=== PATIENT | male | born 1975 | race Caucasian/White ===

== ENCOUNTER 2024-05-22 13:11 | Inpatient (IN) | payer MEDICAID, OTHER ==
[~2024-05-22] VITALS: Ht 177.8 cm; Wt 81.6 kg
[~2024-05-22 13:11] MED LIST: BACL5TAB PO; MIDO10TA3 MT; PREG50CA PO
[2024-05-22] MEDS: SODIUM CHLORIDE 0.9% (SEPSIS BOLUS) IV ONE (13:46)
[2024-05-22 13:59] LABS: BASOPHILS % 0.2 % (0.0-2.0); DIFFERENTIAL COMMENT 0; EOSINOPHILS % 0.2 % (0.0-5.0); HEMATOCRIT. 30.8 % (42.0-52.0); HEMOGLOBIN. 9.6 g/dL (14.0-18.0); LYMPHOCYTES % 16.1 % (20.0-50.0); MEAN CORPUSCULAR HEMOGLOBIN 31.5 pg (28.0-32.0); MEAN CORPUSCULAR VOLUME 101.6 fL (80.0-94.0); MEAN PLATELET VOLUME 8.3 fl (7.4-10.4); MONOCYTES % 7.8 % (2.0-8.0); NEUTROPHILS % 75.7 % (40.0-76.0); PLATELET 272 x1000/uL (130-400); RED BLOOD CELL COUNT 3.03 mill/uL (4.7-6.1)
[2024-05-22 14:00] LABS: CARBON DIOXIDE 13 mEq/L (21-32); CHLORIDE 98 mEq/L (98-107); POTASSIUM 5.5 mEq/L (3.5-5.1); SODIUM 128 mEq/L (136-145)
[2024-05-22 14:06] LABS: GLUCOSE 127 mg/dL (70-105); UREA NITROGEN BLOOD 56 mg/dL (9-23)
[2024-05-22 14:07] LABS: ALANINE AMINOTRANSFERASE 53 IU/L (10-49); ALBUMIN 3.2 g/dL (3.2-4.8); ASPARTATE AMINOTRANSFERASE 53 IU/L (<34)
[2024-05-22 14:08] LABS: BILIRUBIN DIRECT 0.3 mg/dL (<=3.0); BILIRUBIN TOTAL 0.8 mg/dL (0.1-1.0); PROTEIN TOTAL 7.4 g/dL (6.0-8.3)
[2024-05-22] MEDS: SODIUM CHLORIDE 0.9% 500 ML IV ONE (14:23)
[2024-05-22] MEDS: PIPERACILLIN/TAZO 3.375G/50ML 50 ML IV ONE (14:23)
[2024-05-22 14:24] LABS: CREATININE 2.8 mg/dL (0.6-1.3); TROPONIN I HIGH SENSITIVITY < 4 ng/L (3.0-53)
[2024-05-22 14:26] LABS: LACTIC ACID 6.2 mmol/L (0.4-2.0)
[2024-05-22] MEDS: VANCOMYCIN 1G PREMIX 200 ML IV ONE (14:28)
[2024-05-22 14:29] LABS: INR 1.2; PROTHROMBIN TIME 13.5 sec (9.6-11.0)
[2024-05-22] MEDS: MIDODRINE HCL 5MG TABLET PO SCH (14:45)
[2024-05-22] MEDS: PHENYLEPHRINE 50MG/250ML PMX 250 ML IV STA ×2 (14:52→20:01)
[2024-05-22] MEDS: NOREPINEPHRINE 8MG/250ML PMX 250 ML IV ONE ×2 (15:45→22:12)
[2024-05-22 15:52] LABS: CLARITY URINE TURBID (CLEAR); COLOR URINE YELLOW (YELLOW); GLUCOSE URINE NEGATIVE (NEGATIVE); KETONES URINE NEGATIVE (NEGATIVE); LEUKOCYTE ESTERASE URINE 3+ (NEGATIVE); NITRITE URINE NEGATIVE (NEGATIVE); OCCULT BLOOD URINE 1+ (NEGATIVE); PH URINE >=9.0 (4.5-8.0); PROTEIN URINE 3+ (NEGATIVE); SPECIFIC GRAVITY URINE 1.013 (1.005-1.030); UROBILINOGEN URINE 0.2 E.U./dL (0.2-1.0)
[2024-05-22 16:18] LABS: BACTERIA URINE 4+; RBC URINE 0-2 /hpf (0-2); SQUAMOUS EPITHELIAL CELL URINE FEW /lpf (RARE/1+)
[2024-05-22 16:21] LABS: TRIPLE PHOSPHATE CRYSTAL URINE 1+ /lpf; WBC URINE 25-50 /hpf (0-2)
[2024-05-22] MEDS: DIATR MEGLU/DIATRIZOATE SOLN 120ML ONE (17:10)
[2024-05-22] MEDS: MORPHINE SULFATE 2 MG/ML INJ (NOT FOR IM USE) IV ONE (17:45)
[2024-05-22] MEDS: DEXT 5%/0.9% NACL 1,000 ML IV SCH (19:30)
[2024-05-22] MEDS ORDERED: NOREPINEPHRINE 8MG/250ML PMX 250 ML IV ONE (19:30)
[2024-05-22] MEDS ORDERED: PHENYLEPHRINE 100 MG in DEXT 5% WATER 240 ML IV PRN (19:30)
[2024-05-22 19:31] LABS: TROPONIN I HIGH SENSITIVITY 4 ng/L (3.0-53)
[2024-05-22] MEDS ORDERED: DEXTROSE 50% WATER 50ML SYRINGE IV PRN (19:45)
[2024-05-22] MEDS ORDERED: PHENYLEPHRINE 50MG/250ML PMX 250 ML IV SCH (20:00)
[2024-05-22 20:45] LABS: BG BASE EXCESS -14.3 mmol/L (-2.0-3.0); BG CARBOXYHEMOGLOBIN 0.2 % (0.5-1.5); BG DEOXYHEMOGLOBIN 5.7 % (0.0-5.0); BG FRACTION INSPIRED OXYGEN 100; BG HCO3 ACT 13.2 mmol/L (21.0-28.0); BG METHEMOGLOBIN 0.3 % (0.5-1.5); BG OXYGEN SATURATION 94.3 % (94.0-98.0); BG OXYHEMOGLOBIN 93.8 % (94.0-98.0); BG PCO2 36.7 mmHg (35.0-48.0); BG PH 7.173 (7.350-7.450); BG PO2 84.7 mmHg (83.0-108.0); BG SAMPLE SITE RIGHT BRACHIAL; BG TOTAL HEMOGLOBIN 10.5 g/dL (13.5-17.5); BG VENT MODE MASK - NRB
[2024-05-22] MEDS: INSULIN LISPRO 100 UNITS/ML SUBCUT SCH (21:00)
[2024-05-22] MEDS: BLOOD SUGAR DIAGNOSTIC STRIP TEST SCH (21:00)
[2024-05-22] MEDS: MEROPENEM 1G/100ML 100 ML IV SCH (22:00)
[2024-05-22] MEDS: PANTOPRAZOLE SODIUM 40 MG/VIAL IV SCH (22:17)
[2024-05-22] MEDS: SODIUM BICARBONATE 8.4% 50MEQ/50ML SYR IV NR (22:18)
[2024-05-23] VITALS (52 sets, daily range): BP systolic 65–138; BP diastolic 46–93; PULSE 116–152; RESP 10–28; TEMP 36.50292; O2SAT 96–100
[2024-05-23 00:01] LABS: CHLORIDE 99 mEq/L (98-107); POTASSIUM 4.9 mEq/L (3.5-5.1); SODIUM 131 mEq/L (136-145)
[2024-05-23 00:02] LABS: CARBON DIOXIDE 15 mEq/L (21-32)
[2024-05-23 00:03] LABS: CALCIUM 8.6 mg/dL (8.7-10.4)
[2024-05-23 00:07] LABS: CREATININE 2.7 mg/dL (0.6-1.3); GLUCOSE 119 mg/dL (70-105); UREA NITROGEN BLOOD 60 mg/dL (9-23)
[2024-05-23 00:09] LABS: ALANINE AMINOTRANSFERASE 53 IU/L (10-49); ALBUMIN 3.1 g/dL (3.2-4.8); ASPARTATE AMINOTRANSFERASE 59 IU/L (<34); BILIRUBIN TOTAL 0.4 mg/dL (0.1-1.0); PROTEIN TOTAL 7.1 g/dL (6.0-8.3)
[2024-05-23] MEDS ORDERED: NOREPINEPHRINE 8MG/250ML PMX 250 ML IV SCH (01:00)
[2024-05-23] MEDS ORDERED: VASOPRESSIN 20 UNIT in SODIUM CHLORIDE 0.9% 99 ML IV PRN (01:00)
[2024-05-23] MEDS: MEROPENEM 1GM/50ML DUPLEX 50 ML IV NR (01:09)
[2024-05-23 01:23] LABS: BG BASE EXCESS -10.2 mmol/L (-2.0-3.0); BG CARBOXYHEMOGLOBIN 0.3 % (0.5-1.5); BG DEOXYHEMOGLOBIN 1.1 % (0.0-5.0); BG FRACTION INSPIRED OXYGEN 100; BG HCO3 ACT 16.8 mmol/L (21.0-28.0); BG METHEMOGLOBIN 0.3 % (0.5-1.5); BG OXYGEN SATURATION 98.9 % (94.0-98.0); BG OXYHEMOGLOBIN 98.3 % (94.0-98.0); BG PCO2 41.4 mmHg (35.0-48.0); BG PH 7.225 (7.350-7.450); BG PO2 154.4 mmHg (83.0-108.0); BG SAMPLE SITE LEFT RADIAL; BG TOTAL HEMOGLOBIN 9.9 g/dL (13.5-17.5); BG VENT MODE MASK - NRB
[2024-05-23] MEDS: PHENYLEPHRINE 100 MG in DEXT 5% WATER 240 ML IV PRN (02:02)
[2024-05-23] MEDS: SODIUM BICARBONATE 8.4% 50MEQ/50ML SYR IV NR (02:30)
[2024-05-23] MEDS ORDERED: LACTATED RINGERS 1,000 ML IV NR (02:30)
[2024-05-23] MEDS ORDERED: FENTANYL 2500MCG/250ML PMX 250 ML IV SCH (02:45)
[2024-05-23] MEDS: VASOPRESSIN 20 UNIT in SODIUM CHLORIDE 0.9% 99 ML IV PRN (03:10)
[2024-05-23] MEDS: NOREPINEPHRINE 8MG/250ML PMX 250 ML IV PRN ×2 (03:10→22:00)
[2024-05-23 03:24] LABS: POTASSIUM 4.1 mEq/L (3.5-5.1)
[2024-05-23 03:25] LABS: CALCIUM 8.2 mg/dL (8.7-10.4)
[2024-05-23 03:27] LABS: BG BASE EXCESS -12.4 mmol/L (-2.0-3.0); BG DEOXYHEMOGLOBIN 9.3 % (0.0-5.0); BG FRACTION INSPIRED OXYGEN 100; BG HCO3 ACT 16.4 mmol/L (21.0-28.0); BG METHEMOGLOBIN 0.3 % (0.5-1.5); BG OXYGEN SATURATION 90.7 % (94.0-98.0); BG OXYHEMOGLOBIN 90.4 % (94.0-98.0); BG PCO2 51.5 mmHg (35.0-48.0); BG PH 7.122 (7.350-7.450); BG PO2 73.5 mmHg (83.0-108.0); BG SAMPLE SITE LEFT RADIAL; BG TOTAL HEMOGLOBIN 9.8 g/dL (13.5-17.5); BG VENT MODE VENT - AC
[2024-05-23 03:30] LABS: CREATININE 2.5 mg/dL (0.6-1.3)
[2024-05-23 03:48] LABS: BASOPHILS % 0.3 % (0.0-2.0); DIFFERENTIAL COMMENT 0; EOSINOPHILS % 0.1 % (0.0-5.0); HEMATOCRIT. 25.6 % (42.0-52.0); HEMOGLOBIN. 8.2 g/dL (14.0-18.0); LYMPHOCYTES % 20.8 % (20.0-50.0); MEAN CORPUSCULAR HEMOGLOBIN 31.5 pg (28.0-32.0); MEAN CORPUSCULAR HGB CONC 31.9 g/dL (31.0-37.0); MEAN CORPUSCULAR VOLUME 98.8 fL (80.0-94.0); MEAN PLATELET VOLUME 8.7 fl (7.4-10.4); MONOCYTES % 2.6 % (2.0-8.0); NEUTROPHILS % 76.2 % (40.0-76.0); PLATELET 253 x1000/uL (130-400); RED BLOOD CELL COUNT 2.59 mill/uL (4.7-6.1); RED CELL DISTRIBUTION WIDTH 17.1 % (11.6-14.6); WHITE BLOOD COUNT 9.8 x1000/uL (4.5-11.0)
[2024-05-23 04:03] LABS: LACTIC ACID 9.3 mmol/L (0.4-2.0)
[2024-05-23 05:49] LABS: HEMATOCRIT. 34.3 % (42.0-52.0); HEMOGLOBIN. 11.1 g/dL (14.0-18.0); MEAN CORPUSCULAR HEMOGLOBIN 31.7 pg (28.0-32.0); MEAN CORPUSCULAR HGB CONC 32.4 g/dL (31.0-37.0); MEAN CORPUSCULAR VOLUME 97.9 fL (80.0-94.0); MEAN PLATELET VOLUME 8.8 fl (7.4-10.4); PLATELET 310 x1000/uL (130-400); RED CELL DISTRIBUTION WIDTH 16.8 % (11.6-14.6)
[2024-05-23 06:06] LABS: CHLORIDE 101 mEq/L (98-107); POTASSIUM 4.7 mEq/L (3.5-5.1); SODIUM 137 mEq/L (136-145)
[2024-05-23 06:07] LABS: CARBON DIOXIDE 15 mEq/L (21-32)
[2024-05-23 06:08] LABS: CALCIUM 9.3 mg/dL (8.7-10.4)
[2024-05-23 06:12] LABS: CREATININE 2.6 mg/dL (0.6-1.3); GLUCOSE 86 mg/dL (70-105)
[2024-05-23 06:13] LABS: UREA NITROGEN BLOOD 69 mg/dL (9-23)
[2024-05-23 06:14] LABS: ALANINE AMINOTRANSFERASE 62 IU/L (10-49); ALBUMIN 3.4 g/dL (3.2-4.8); ASPARTATE AMINOTRANSFERASE 82 IU/L (<34)
[2024-05-23 06:15] LABS: BILIRUBIN TOTAL 0.4 mg/dL (0.1-1.0); PROTEIN TOTAL 7.8 g/dL (6.0-8.3)
[2024-05-23 06:25] LABS: DIFFERENTIAL COMMENT 1
[2024-05-23] MEDS: IPRATROPIUM/ALBUTEROL 0.5-3(2.5)MG/3ML NEB HHN SCH (08:17)
[2024-05-23] MEDS: PROPOFOL 10MG/ML 100ML 100 ML IV PRN (08:52)
[2024-05-23] MEDS ORDERED: PIPERACILLIN/TAZO 3.375G/100ML 100 ML IV SCH (09:00)
[2024-05-23 10:24] LABS: BG CARBOXYHEMOGLOBIN 0.3 % (0.5-1.5); BG DEOXYHEMOGLOBIN 0.3 % (0.0-5.0); BG FRACTION INSPIRED OXYGEN 100; BG HCO3 ACT 17.9 mmol/L (21.0-28.0); BG METHEMOGLOBIN 0.3 % (0.5-1.5); BG OXYGEN SATURATION 99.7 % (94.0-98.0); BG OXYHEMOGLOBIN 99.1 % (94.0-98.0); BG PCO2 37.9 mmHg (35.0-48.0); BG PH 7.291 (7.350-7.450); BG PO2 305.8 mmHg (83.0-108.0); BG SAMPLE SITE LEFT RADIAL; BG TOTAL HEMOGLOBIN 10.1 g/dL (13.5-17.5); BG TOTAL RESPIRATORY RATE 27 b/min; BG VENT MODE VENT - AC
[2024-05-23] MEDS: VANCOMYCIN 750MG/150ML (BAXTER) IV SCH (12:11)
[2024-05-23] MEDS ORDERED: VANCOMYCIN 500MG/100ML IV SCH (13:00)
[2024-05-23] MEDS: FENTANYL CITRATE 1,000 MCG in SODIUM CHLORIDE 0.9% 80 ML IV PRN (14:57)
[2024-05-23 20:05] LABS: ANISOCYTOSIS 1+; PLATELET ESTIMATE NORMAL
[2024-05-23] MEDS: PIPERACILLIN/TAZO 3.375G/100ML 100 ML IV SCH (21:57)
[2024-05-24] VITALS (100 sets, daily range): BP systolic 69–119; BP diastolic 43–82; PULSE 104–146; RESP 20–29; TEMP 36.3918–39.00312; O2SAT 90–100
[2024-05-24] MEDS: LACTATED RINGERS 1,000 ML IV NR (00:23)
[2024-05-24 06:18] LABS: CHLORIDE 108 mEq/L (98-107); SODIUM 142 mEq/L (136-145)
[2024-05-24 06:19] LABS: CARBON DIOXIDE 20 mEq/L (21-32); HEMATOCRIT. 25.6 % (42.0-52.0); HEMOGLOBIN. 8.5 g/dL (14.0-18.0); MEAN CORPUSCULAR HEMOGLOBIN 31.8 pg (28.0-32.0); MEAN CORPUSCULAR HGB CONC 33.1 g/dL (31.0-37.0); MEAN CORPUSCULAR VOLUME 96.2 fL (80.0-94.0); MEAN PLATELET VOLUME 8.5 fl (7.4-10.4); PLATELET 192 x1000/uL (130-400); RED BLOOD CELL COUNT 2.66 mill/uL (4.7-6.1); RED CELL DISTRIBUTION WIDTH 16.7 % (11.6-14.6); WHITE BLOOD COUNT 14.2 x1000/uL (4.5-11.0)
[2024-05-24 06:24] LABS: GLUCOSE 118 mg/dL (70-105); UREA NITROGEN BLOOD 63 mg/dL (9-23)
[2024-05-24 06:26] LABS: ALANINE AMINOTRANSFERASE 41 IU/L (10-49); ALBUMIN 2.8 g/dL (3.2-4.8); ASPARTATE AMINOTRANSFERASE 37 IU/L (<34); BILIRUBIN DIRECT 0.2 mg/dL (<=3.0); BILIRUBIN TOTAL 0.3 mg/dL (0.1-1.0); PHOSPHORUS 4.5 mg/dL (2.5-4.9); PROTEIN TOTAL 6.3 g/dL (6.0-8.3)
[2024-05-24 06:29] LABS: LACTIC ACID 4.3 mmol/L (0.4-2.0)
[2024-05-24 06:33] LABS: CREATININE 1.8 mg/dL (0.6-1.3)
[2024-05-24 06:53] LABS: DIFFERENTIAL COMMENT 1
[2024-05-24] MEDS: MAGNESIUM 4 G PREMIX 100 ML IV SCH (09:00)
[2024-05-24 09:31] LABS: BG BASE EXCESS -6.2 mmol/L (-2.0-3.0); BG CARBOXYHEMOGLOBIN 0.3 % (0.5-1.5); BG DEOXYHEMOGLOBIN 0.1 % (0.0-5.0); BG FRACTION INSPIRED OXYGEN 60; BG METHEMOGLOBIN 0.1 % (0.5-1.5); BG OXYGEN SATURATION 99.9 % (94.0-98.0); BG OXYHEMOGLOBIN 99.5 % (94.0-98.0); BG PCO2 35.9 mmHg (35.0-48.0); BG PH 7.341 (7.350-7.450); BG PO2 209.6 mmHg (83.0-108.0); BG SAMPLE SITE LEFT BRACHIAL; BG TOTAL HEMOGLOBIN 8.5 g/dL (13.5-17.5); BG TOTAL RESPIRATORY RATE 25 b/min; BG VENT MODE VENT - AC
[2024-05-24] MEDS ORDERED: MAGNESIUM 2 G PREMIX 50 ML IV ONE (09:45)
[2024-05-24 11:38] LABS: TROPONIN I HIGH SENSITIVITY 2637 ng/L (3.0-53)
[2024-05-24] MEDS: MEROPENEM 1GM/50ML DUPLEX 50 ML IV SCH (14:00)
[2024-05-24 16:33] LABS: ANISOCYTOSIS 1+; HYPOCHROMASIA 1+; PLATELET ESTIMATE NORMAL
[2024-05-24] MEDS: ACETAMINOPHEN 650MG SUPP PR PRN (21:02)
[2024-05-25] VITALS (101 sets, daily range): BP systolic 83–111; BP diastolic 63–84; PULSE 130–149; RESP 14–30; TEMP 37.05852–39.4476; O2SAT 90–100
[2024-05-25 06:16] LABS: HEMATOCRIT. 23.6 % (42.0-52.0); HEMOGLOBIN. 7.5 g/dL (14.0-18.0); MEAN CORPUSCULAR HEMOGLOBIN 31.3 pg (28.0-32.0); MEAN CORPUSCULAR HGB CONC 31.7 g/dL (31.0-37.0); MEAN CORPUSCULAR VOLUME 98.8 fL (80.0-94.0); MEAN PLATELET VOLUME 8.6 fl (7.4-10.4); PLATELET 169 x1000/uL (130-400); RED BLOOD CELL COUNT 2.39 mill/uL (4.7-6.1); RED CELL DISTRIBUTION WIDTH 17.5 % (11.6-14.6); WHITE BLOOD COUNT 28.5 x1000/uL (4.5-11.0)
[2024-05-25 06:32] LABS: CHLORIDE 112 mEq/L (98-107); POTASSIUM 3.7 mEq/L (3.5-5.1); SODIUM 144 mEq/L (136-145)
[2024-05-25 06:33] LABS: CALCIUM 7.9 mg/dL (8.7-10.4); CARBON DIOXIDE 17 mEq/L (21-32)
[2024-05-25 06:38] LABS: CREATININE 1.5 mg/dL (0.6-1.3); GLUCOSE 208 mg/dL (70-105); UREA NITROGEN BLOOD 55 mg/dL (9-23)
[2024-05-25 06:39] LABS: PROTEIN TOTAL 6.9 g/dL (6.0-8.3)
[2024-05-25 06:40] LABS: ALANINE AMINOTRANSFERASE 49 IU/L (10-49); ASPARTATE AMINOTRANSFERASE 67 IU/L (<34); BILIRUBIN DIRECT 0.2 mg/dL (<=3.0); BILIRUBIN TOTAL 0.3 mg/dL (0.1-1.0); FOLIC ACID (FOLATE) SERUM 12.99 ng/mL (>5.38); PHOSPHORUS 4.4 mg/dL (2.5-4.9)
[2024-05-25 06:52] LABS: PREALBUMIN < 5.0 mg/dl (10.0-40.0)
[2024-05-25 07:03] LABS: VITAMIN B12 SERUM 3151 pg/mL (211-911)
[2024-05-25 08:06] LABS: DIFFERENTIAL COMMENT 1
[2024-05-25 10:50] LABS: BG BASE EXCESS -10.6 mmol/L (-2.0-3.0); BG CARBOXYHEMOGLOBIN 1.2 % (0.5-1.5); BG DEOXYHEMOGLOBIN 0.6 % (0.0-5.0); BG FRACTION INSPIRED OXYGEN 50; BG HCO3 ACT 15.3 mmol/L (21.0-28.0); BG METHEMOGLOBIN 0.3 % (0.5-1.5); BG OXYGEN SATURATION 99.4 % (94.0-98.0); BG OXYHEMOGLOBIN 97.9 % (94.0-98.0); BG PCO2 33.6 mmHg (35.0-48.0); BG PH 7.275 (7.350-7.450); BG PO2 167.9 mmHg (83.0-108.0); BG SAMPLE SITE RIGHT RADIAL; BG TOTAL HEMOGLOBIN 7.9 g/dL (13.5-17.5); BG VENT MODE VENT - AC
[2024-05-25 12:17] LABS: ANISOCYTOSIS 1+; PLATELET ESTIMATE NORMAL
[2024-05-25] MEDS: VANCOMYCIN 1GM/200ML PMX (BAXTER) IV SCH (12:47)
[2024-05-25] MEDS ORDERED: PROPOFOL 10MG/ML 100ML 100 ML IV PRN (13:20)
[2024-05-25 13:23] LABS: LACTIC ACID 4.3 mmol/L (0.4-2.0)
[2024-05-25] MEDS: SODIUM BICARBONATE 50 MEQ in DEXT 5%/0.45% NACL 1000ML 950 ML IV SCH (14:00)
[2024-05-25] MEDS: POTASSIUM BICARB/CIT ACID 25 MEQ TABLET.EFF PO NR (14:00)
[2024-05-25 16:27] LABS: BG BASE EXCESS -12.5 mmol/L (-2.0-3.0); BG CARBOXYHEMOGLOBIN 0.9 % (0.5-1.5); BG DEOXYHEMOGLOBIN 0.3 % (0.0-5.0); BG FRACTION INSPIRED OXYGEN 100; BG HCO3 ACT 12.7 mmol/L (21.0-28.0); BG METHEMOGLOBIN 0.1 % (0.5-1.5); BG OXYGEN SATURATION 99.7 % (94.0-98.0); BG OXYHEMOGLOBIN 98.7 % (94.0-98.0); BG PCO2 26.7 mmHg (35.0-48.0); BG PH 7.296 (7.350-7.450); BG PO2 457.1 mmHg (83.0-108.0); BG SAMPLE SITE LEFT RADIAL; BG TOTAL HEMOGLOBIN 7.3 g/dL (13.5-17.5); BG VENT MODE VENT - AC
[2024-05-26] VITALS (106 sets, daily range): BP systolic 74–108; BP diastolic 57–80; PULSE 100–135; RESP 16–27; TEMP 36.78072–38.11416; O2SAT 0–100
[2024-05-26 05:52] LABS: HEMATOCRIT. 22.5 % (42.0-52.0); MEAN CORPUSCULAR HEMOGLOBIN 30.9 pg (28.0-32.0); MEAN CORPUSCULAR VOLUME 99.8 fL (80.0-94.0); MEAN PLATELET VOLUME 9.2 fl (7.4-10.4); PLATELET 99 x1000/uL (130-400); RED BLOOD CELL COUNT 2.26 mill/uL (4.7-6.1); RED CELL DISTRIBUTION WIDTH 17.6 % (11.6-14.6)
[2024-05-26 05:56] LABS: CHLORIDE 111 mEq/L (98-107); POTASSIUM 4.1 mEq/L (3.5-5.1); SODIUM 143 mEq/L (136-145)
[2024-05-26 05:57] LABS: CALCIUM 7.7 mg/dL (8.7-10.4); CARBON DIOXIDE 17 mEq/L (21-32)
[2024-05-26 06:02] LABS: CREATININE 1.7 mg/dL (0.6-1.3); DIFFERENTIAL COMMENT 1; GLUCOSE 209 mg/dL (70-105); UREA NITROGEN BLOOD 72 mg/dL (9-23)
[2024-05-26 06:04] LABS: ALANINE AMINOTRANSFERASE 438 IU/L (10-49); ALBUMIN 2.8 g/dL (3.2-4.8); ASPARTATE AMINOTRANSFERASE 762 IU/L (<34); BILIRUBIN DIRECT 0.6 mg/dL (<=3.0)
[2024-05-26 06:05] LABS: BILIRUBIN TOTAL 0.9 mg/dL (0.1-1.0); PHOSPHORUS 5.5 mg/dL (2.5-4.9); PROTEIN TOTAL 6.3 g/dL (6.0-8.3)
[2024-05-26 15:30] LABS: PLATELET ESTIMATE SLIGHTLY DECREASED
[2024-05-26] MEDS: IPRATROPIUM BROMIDE (0.02%) 0.5MG/2.5ML NEB HHN PRN (15:55)
[2024-05-26 18:10] LABS: EOSINOPHILS % 1.1 % (0.0-5.0); HEMATOCRIT. 23.8 % (42.0-52.0); HEMOGLOBIN. 7.5 g/dL (14.0-18.0); LYMPHOCYTES % 10.9 % (20.0-50.0); MEAN CORPUSCULAR HEMOGLOBIN 30.7 pg (28.0-32.0); MEAN CORPUSCULAR HGB CONC 31.7 g/dL (31.0-37.0); MEAN PLATELET VOLUME 9.3 fl (7.4-10.4); MONOCYTES % 3.4 % (2.0-8.0); NEUTROPHILS % 84.6 % (40.0-76.0); PLATELET 77 x1000/uL (130-400); RED BLOOD CELL COUNT 2.46 mill/uL (4.7-6.1); RED CELL DISTRIBUTION WIDTH 17.2 % (11.6-14.6); WHITE BLOOD COUNT 22.5 x1000/uL (4.5-11.0)
[2024-05-26] MEDS: AZITHROMYCIN 500 MG in DEXT 5% WATER 250 ML IV SCH (22:07)
[2024-05-27] VITALS (97 sets, daily range): BP systolic 79–109; BP diastolic 52–81; PULSE 96–117; RESP 10–25; TEMP 36.9474–38.0586; O2SAT 99–100
[2024-05-27 05:02] LABS: BASOPHILS % 0.3 % (0.0-2.0); EOSINOPHILS % 1.2 % (0.0-5.0); HEMATOCRIT. 30.5 % (42.0-52.0); HEMOGLOBIN. 9.7 g/dL (14.0-18.0); LYMPHOCYTES % 8.9 % (20.0-50.0); MEAN CORPUSCULAR HEMOGLOBIN 29.8 pg (28.0-32.0); MEAN CORPUSCULAR VOLUME 93.2 fL (80.0-94.0); MEAN PLATELET VOLUME 9.8 fl (7.4-10.4); MONOCYTES % 3.5 % (2.0-8.0); NEUTROPHILS % 86.1 % (40.0-76.0); PLATELET 80 x1000/uL (130-400); RED BLOOD CELL COUNT 3.27 mill/uL (4.7-6.1); WHITE BLOOD COUNT 23.6 x1000/uL (4.5-11.0)
[2024-05-27 05:04] LABS: CHLORIDE 109 mEq/L (98-107); POTASSIUM 4.5 mEq/L (3.5-5.1); SODIUM 139 mEq/L (136-145)
[2024-05-27 05:05] LABS: CALCIUM 7.5 mg/dL (8.7-10.4); CARBON DIOXIDE 17 mEq/L (21-32)
[2024-05-27 05:09] LABS: IRON 127 ug/dL (65-175)
[2024-05-27 05:10] LABS: CREATININE 2.1 mg/dL (0.6-1.3); GLUCOSE 227 mg/dL (70-105); UREA NITROGEN BLOOD 81 mg/dL (9-23)
[2024-05-27 05:12] LABS: ALANINE AMINOTRANSFERASE 566 IU/L (10-49); ALBUMIN 2.8 g/dL (3.2-4.8); ASPARTATE AMINOTRANSFERASE 735 IU/L (<34); BILIRUBIN TOTAL 1.5 mg/dL (0.1-1.0); PROTEIN TOTAL 6.3 g/dL (6.0-8.3); TOTAL IRON BINDING CAPACITY 278 ug/dl (250-425)
[2024-05-27 05:33] LABS: FERRITIN > 1650 ng/mL (22-322)
[2024-05-27 05:54] LABS: DIFFERENTIAL COMMENT 1
[2024-05-27 05:55] LABS: ADD RBC MORPHOLOGY YES
[2024-05-27 06:10] LABS: VITAMIN B12 SERUM 7725 pg/mL (211-911)
[2024-05-27 10:32] LABS: ANISOCYTOSIS 2+; PLATELET ESTIMATE DECREASED
[2024-05-27 10:48] LABS: BG BASE EXCESS -10.8 mmol/L (-2.0-3.0); BG CARBOXYHEMOGLOBIN 0.5 % (0.5-1.5); BG FRACTION INSPIRED OXYGEN 40; BG HCO3 ACT 14.7 mmol/L (21.0-28.0); BG METHEMOGLOBIN 0.3 % (0.5-1.5); BG OXYHEMOGLOBIN 98.2 % (94.0-98.0); BG PCO2 31.7 mmHg (35.0-48.0); BG PH 7.285 (7.350-7.450); BG PO2 158.3 mmHg (83.0-108.0); BG SAMPLE SITE LEFT RADIAL; BG TOTAL HEMOGLOBIN 9.7 g/dL (13.5-17.5); BG TOTAL RESPIRATORY RATE 22 b/min; BG VENT MODE VENT - AC
[2024-05-27] MEDS: MEROPENEM 1GM/50ML DUPLEX 50 ML IV SCH (17:58)
[2024-05-28] VITALS (94 sets, daily range): BP systolic 72–119; BP diastolic 50–86; PULSE 94–122; RESP 21–28; TEMP 36.00288–37.44744; O2SAT 98–100
[2024-05-28] MEDS: BLOOD SUGAR DIAGNOSTIC STRIP TEST SCH (06:08)
[2024-05-28 06:11] LABS: CARBON DIOXIDE 17 mEq/L (21-32); CHLORIDE 110 mEq/L (98-107); POTASSIUM 3.9 mEq/L (3.5-5.1); SODIUM 139 mEq/L (136-145)
[2024-05-28 06:12] LABS: CALCIUM 7.4 mg/dL (8.7-10.4)
[2024-05-28 06:15] LABS: BASOPHILS % 0.1 % (0.0-2.0); EOSINOPHILS % 0.1 % (0.0-5.0); HEMATOCRIT. 29.2 % (42.0-52.0); HEMOGLOBIN. 9.5 g/dL (14.0-18.0); LYMPHOCYTES % 8.4 % (20.0-50.0); MEAN CORPUSCULAR HEMOGLOBIN 30.1 pg (28.0-32.0); MEAN CORPUSCULAR HGB CONC 32.6 g/dL (31.0-37.0); MEAN CORPUSCULAR VOLUME 92.3 fL (80.0-94.0); MEAN PLATELET VOLUME 10.6 fl (7.4-10.4); MONOCYTES % 2.5 % (2.0-8.0); NEUTROPHILS % 88.9 % (40.0-76.0); PLATELET 57 x1000/uL (130-400); RED BLOOD CELL COUNT 3.17 mill/uL (4.7-6.1); RED CELL DISTRIBUTION WIDTH 21.5 % (11.6-14.6); UREA NITROGEN BLOOD 83 mg/dL (9-23); WHITE BLOOD COUNT 28.3 x1000/uL (4.5-11.0)
[2024-05-28 06:16] LABS: CREATININE 2.1 mg/dL (0.6-1.3)
[2024-05-28 06:17] LABS: GLUCOSE 199 mg/dL (70-105)
[2024-05-28 06:18] LABS: ALANINE AMINOTRANSFERASE 327 IU/L (10-49); ALBUMIN 2.5 g/dL (3.2-4.8)
[2024-05-28 06:19] LABS: ASPARTATE AMINOTRANSFERASE 404 IU/L (<34); BILIRUBIN TOTAL 1.5 mg/dL (0.1-1.0); PHOSPHORUS 4.3 mg/dL (2.5-4.9); PROTEIN TOTAL 5.6 g/dL (6.0-8.3)
[2024-05-28 07:01] LABS: HEPATITIS B SURFACE ANTIGEN NEGATIVE (Negative)
[2024-05-28 07:22] LABS: HEPATITIS A AB IGM NEGATIVE (Negative); HEPATITIS B CORE AB IGM NEGATIVE (Negative); HEPATITIS C AB NON REACTIVE (Neg) (Negative)
[2024-05-28] MEDS ORDERED: FENTANYL 2500MCG/250ML PMX 250 ML IV ONE (09:15)
[2024-05-28] MEDS: INSULIN LISPRO 100 UNITS/ML SUBCUT SCH (09:57)
[2024-05-28 09:59] LABS: BG BASE EXCESS -7.4 mmol/L (-2.0-3.0); BG CARBOXYHEMOGLOBIN 0.7 % (0.5-1.5); BG DEOXYHEMOGLOBIN 1.4 % (0.0-5.0); BG FRACTION INSPIRED OXYGEN 35; BG HCO3 ACT 16.8 mmol/L (21.0-28.0); BG METHEMOGLOBIN 0.3 % (0.5-1.5); BG OXYGEN SATURATION 98.6 % (94.0-98.0); BG OXYHEMOGLOBIN 97.6 % (94.0-98.0); BG PCO2 29.6 mmHg (35.0-48.0); BG PH 7.371 (7.350-7.450); BG PO2 135.4 mmHg (83.0-108.0); BG SAMPLE SITE LEFT RADIAL; BG TOTAL HEMOGLOBIN 10.5 g/dL (13.5-17.5); BG TOTAL RESPIRATORY RATE 24 b/min; BG VENT MODE VENT - AC
[2024-05-28] MEDS: FENTANYL CITRATE 1,000 MCG in SODIUM CHLORIDE 0.9% 80 ML IV PRN (17:28)
[2024-05-28] MEDS: PANTOPRAZOLE SODIUM 40 MG/VIAL IV SCH (21:12)
[2024-05-28] MEDS: AZITHROMYCIN 500MG/250ML 250 ML IV SCH (21:26)
[2024-05-29] VITALS (100 sets, daily range): BP systolic 83–145; BP diastolic 55–100; PULSE 80–121; RESP 19–27; TEMP 36.9474–37.55856; O2SAT 98–100
[2024-05-29 05:47] LABS: HEMATOCRIT. 34.1 % (42.0-52.0); HEMOGLOBIN. 10.8 g/dL (14.0-18.0); MEAN CORPUSCULAR HGB CONC 31.8 g/dL (31.0-37.0); MEAN CORPUSCULAR VOLUME 94.2 fL (80.0-94.0); MEAN PLATELET VOLUME 10.7 fl (7.4-10.4); PLATELET 74 x1000/uL (130-400); RED BLOOD CELL COUNT 3.62 mill/uL (4.7-6.1); RED CELL DISTRIBUTION WIDTH 22.2 % (11.6-14.6); WHITE BLOOD COUNT 37.7 x1000/uL (4.5-11.0)
[2024-05-29 06:01] LABS: DIFFERENTIAL COMMENT 1
[2024-05-29 06:12] LABS: CHLORIDE 113 mEq/L (98-107); POTASSIUM 3.8 mEq/L (3.5-5.1); SODIUM 143 mEq/L (136-145)
[2024-05-29 06:14] LABS: CALCIUM 7.6 mg/dL (8.7-10.4); CARBON DIOXIDE 17 mEq/L (21-32)
[2024-05-29 06:19] LABS: CREATININE 1.9 mg/dL (0.6-1.3); GLUCOSE 171 mg/dL (70-105); UREA NITROGEN BLOOD 76 mg/dL (9-23)
[2024-05-29 06:21] LABS: ALANINE AMINOTRANSFERASE 136 IU/L (10-49); ALBUMIN 2.5 g/dL (3.2-4.8); ASPARTATE AMINOTRANSFERASE 229 IU/L (<34); BILIRUBIN DIRECT 0.8 mg/dL (<=3.0); PHOSPHORUS 3.8 mg/dL (2.5-4.9)
[2024-05-29 06:22] LABS: BILIRUBIN TOTAL 1.4 mg/dL (0.1-1.0)
[2024-05-29 08:30] LABS: BG BASE EXCESS -5.1 mmol/L (-2.0-3.0); BG CARBOXYHEMOGLOBIN 0.6 % (0.5-1.5); BG DEOXYHEMOGLOBIN 2.1 % (0.0-5.0); BG FRACTION INSPIRED OXYGEN 35; BG HCO3 ACT 18.9 mmol/L (21.0-28.0); BG METHEMOGLOBIN 0.3 % (0.5-1.5); BG OXYGEN SATURATION 97.9 % (94.0-98.0); BG PCO2 31.3 mmHg (35.0-48.0); BG PH 7.399 (7.350-7.450); BG PO2 107.9 mmHg (83.0-108.0); BG SAMPLE SITE RIGHT BRACHIAL; BG TOTAL HEMOGLOBIN 10.2 g/dL (13.5-17.5); BG VENT MODE VENT - AC
[2024-05-29] MEDS: METOCLOPRAMIDE HCL 10MG/2ML VIAL IV SCH ×2 (12:25→17:12)
[2024-05-29 13:28] LABS: ANISOCYTOSIS 2+; PLATELET ESTIMATE DECREASED
[2024-05-29] MEDS: MEROPENEM 1G/100ML 100 ML IV SCH (17:12)
[2024-05-30] VITALS (103 sets, daily range): BP systolic 73–139; BP diastolic 51–87; PULSE 71–102; RESP 16–27; TEMP 36.50292–37.00296; O2SAT 97–100
[2024-05-30 05:25] LABS: BASOPHILS % 0.2 % (0.0-2.0); EOSINOPHILS % 0.5 % (0.0-5.0); HEMATOCRIT. 29.4 % (42.0-52.0); HEMOGLOBIN. 9.5 g/dL (14.0-18.0); LYMPHOCYTES % 10.7 % (20.0-50.0); MEAN CORPUSCULAR HEMOGLOBIN 29.7 pg (28.0-32.0); MEAN CORPUSCULAR HGB CONC 32.2 g/dL (31.0-37.0); MEAN CORPUSCULAR VOLUME 92.1 fL (80.0-94.0); MEAN PLATELET VOLUME 10.1 fl (7.4-10.4); MONOCYTES % 3.5 % (2.0-8.0); NEUTROPHILS % 85.1 % (40.0-76.0); PLATELET 118 x1000/uL (130-400); RED CELL DISTRIBUTION WIDTH 22.3 % (11.6-14.6)
[2024-05-30 05:48] LABS: CARBON DIOXIDE 21 mEq/L (21-32); CHLORIDE 112 mEq/L (98-107); SODIUM 145 mEq/L (136-145)
[2024-05-30 05:49] LABS: CALCIUM 7.7 mg/dL (8.7-10.4)
[2024-05-30 05:54] LABS: CREATININE 1.6 mg/dL (0.6-1.3); GLUCOSE 116 mg/dL (70-105); UREA NITROGEN BLOOD 65 mg/dL (9-23)
[2024-05-30 05:56] LABS: PHOSPHORUS 3.3 mg/dL (2.5-4.9)
[2024-05-30 06:00] LABS: DIFFERENTIAL COMMENT 1
[2024-05-30] MEDS: KCL 20MEQ/100ML PREMIX 100 ML IV SCH (08:19)
[2024-05-30] MEDS: MAGNESIUM 4 G PREMIX 100 ML IV NR (09:47)
[2024-05-30 11:11] LABS: BG BASE EXCESS -3.8 mmol/L (-2.0-3.0); BG CARBOXYHEMOGLOBIN 0.7 % (0.5-1.5); BG DEOXYHEMOGLOBIN 1.3 % (0.0-5.0); BG FRACTION INSPIRED OXYGEN 35; BG HCO3 ACT 19.7 mmol/L (21.0-28.0); BG METHEMOGLOBIN 0.3 % (0.5-1.5); BG OXYGEN SATURATION 98.7 % (94.0-98.0); BG OXYHEMOGLOBIN 97.7 % (94.0-98.0); BG PCO2 29.9 mmHg (35.0-48.0); BG PH 7.436 (7.350-7.450); BG PO2 124.3 mmHg (83.0-108.0); BG SAMPLE SITE LEFT BRACHIAL; BG VENT MODE VENT - AC
[2024-05-30] MEDS: MEROPENEM 1G/100ML 100 ML IV SCH (13:53)
[2024-05-31] VITALS (106 sets, daily range): BP systolic 79–140; BP diastolic 47–86; PULSE 72–126; RESP 12–33; TEMP 36.00288–37.00296; O2SAT 91–100
[2024-05-31 06:51] LABS: AMMONIA 50 uMol/L (<32)
[2024-05-31 07:07] LABS: ALANINE AMINOTRANSFERASE 36 IU/L (10-49); ALBUMIN 2.3 g/dL (3.2-4.8); ASPARTATE AMINOTRANSFERASE 42 IU/L (<34); BILIRUBIN DIRECT 0.4 mg/dL (<=3.0); BILIRUBIN TOTAL 0.8 mg/dL (0.1-1.0); PROTEIN TOTAL 5.6 g/dL (6.0-8.3)
[2024-05-31 09:28] LABS: BG BASE EXCESS -5.3 mmol/L (-2.0-3.0); BG CARBOXYHEMOGLOBIN 1.1 % (0.5-1.5); BG DEOXYHEMOGLOBIN 2.3 % (0.0-5.0); BG FRACTION INSPIRED OXYGEN 35; BG HCO3 ACT 18.8 mmol/L (21.0-28.0); BG METHEMOGLOBIN 0.2 % (0.5-1.5); BG OXYGEN SATURATION 97.7 % (94.0-98.0); BG OXYHEMOGLOBIN 96.4 % (94.0-98.0); BG PCO2 31.3 mmHg (35.0-48.0); BG PH 7.397 (7.350-7.450); BG SAMPLE SITE RIGHT RADIAL; BG TOTAL HEMOGLOBIN 8.6 g/dL (13.5-17.5); BG VENT MODE VENT - AC
[2024-05-31 10:21] LABS: HEMATOCRIT 28.5 % (42.0-52.0); MEAN CORPUSCULAR HEMOGLOBIN 29.1 pg (28.0-32.0); MEAN CORPUSCULAR HGB CONC 31.6 g/dL (31.0-37.0); MEAN CORPUSCULAR VOLUME 91.9 fL (80.0-94.0); PLATELET 144 x1000/uL (130-400); RED CELL DISTRIBUTION WIDTH 21.7 % (11.6-14.6); WHITE BLOOD COUNT 19.6 x1000/uL (4.5-11.0)
[2024-05-31 11:05] LABS: CALCIUM 7.9 mg/dL (8.7-10.4); CHLORIDE 115 mEq/L (98-107); POTASSIUM 3.4 mEq/L (3.5-5.1); SODIUM 147 mEq/L (136-145)
[2024-05-31 11:06] LABS: CARBON DIOXIDE 22 mEq/L (21-32)
[2024-05-31 11:11] LABS: CREATININE 1.2 mg/dL (0.6-1.3); GLUCOSE 102 mg/dL (70-105); UREA NITROGEN BLOOD 46 mg/dL (9-23)
[2024-05-31] MEDS: THIAMINE HCL 100MG TABLET PO SCH (13:58)
[2024-05-31] MEDS: KCL 20MEQ/100ML PREMIX 100 ML IV SCH (13:58)
[2024-05-31] MEDS: DEXT 5%/0.45% NACL 1000ML 1,000 ML IV SCH (13:58)
[2024-05-31 15:13] LABS: BG BASE EXCESS -0.8 mmol/L (-2.0-3.0); BG CARBOXYHEMOGLOBIN 0.8 % (0.5-1.5); BG DEOXYHEMOGLOBIN 2.2 % (0.0-5.0); BG FRACTION INSPIRED OXYGEN 35; BG HCO3 ACT 23.7 mmol/L (21.0-28.0); BG METHEMOGLOBIN 0.4 % (0.5-1.5); BG OXYGEN SATURATION 97.8 % (94.0-98.0); BG OXYHEMOGLOBIN 96.6 % (94.0-98.0); BG PCO2 38.2 mmHg (35.0-48.0); BG PH 7.411 (7.350-7.450); BG PO2 103.4 mmHg (83.0-108.0); BG SAMPLE SITE RIGHT RADIAL; BG TOTAL HEMOGLOBIN 7.6 g/dL (13.5-17.5); BG VENT MODE VENT - CPAP
[2024-05-31 22:49] LABS: BG BASE EXCESS -6.8 mmol/L (-2.0-3.0); BG CARBOXYHEMOGLOBIN 0.3 % (0.5-1.5); BG DEOXYHEMOGLOBIN 8.6 % (0.0-5.0); BG FRACTION INSPIRED OXYGEN 100; BG METHEMOGLOBIN 0.4 % (0.5-1.5); BG OXYGEN SATURATION 91.3 % (94.0-98.0); BG OXYHEMOGLOBIN 90.7 % (94.0-98.0); BG PCO2 83.7 mmHg (35.0-48.0); BG PH 7.076 (7.350-7.450); BG PO2 81.5 mmHg (83.0-108.0); BG SAMPLE SITE RIGHT RADIAL; BG VENT MODE MASK - NRB
[2024-06-01] VITALS (104 sets, daily range): BP systolic 82–143; BP diastolic 54–90; PULSE 71–117; RESP 15–32; TEMP 36.33624–36.83628; O2SAT 90–100
[2024-06-01] MEDS: PROPOFOL 10MG/ML 100ML 100 ML IV SCH (01:27)
[2024-06-01 02:07] LABS: BG BASE EXCESS -4.3 mmol/L (-2.0-3.0); BG CARBOXYHEMOGLOBIN 0.3 % (0.5-1.5); BG DEOXYHEMOGLOBIN 0.7 % (0.0-5.0); BG FRACTION INSPIRED OXYGEN 100; BG HCO3 ACT 21.8 mmol/L (21.0-28.0); BG METHEMOGLOBIN 0.3 % (0.5-1.5); BG OXYGEN SATURATION 99.3 % (94.0-98.0); BG OXYHEMOGLOBIN 98.7 % (94.0-98.0); BG PCO2 44.4 mmHg (35.0-48.0); BG PH 7.309 (7.350-7.450); BG PO2 206.2 mmHg (83.0-108.0); BG SAMPLE SITE RIGHT RADIAL; BG TOTAL HEMOGLOBIN 10.1 g/dL (13.5-17.5); BG TOTAL RESPIRATORY RATE 26 b/min; BG VENT MODE VENT - P/C
[2024-06-01 05:28] LABS: HEMOGLOBIN. 9.2 g/dL (14.0-18.0); MEAN CORPUSCULAR HEMOGLOBIN 29.7 pg (28.0-32.0); MEAN CORPUSCULAR HGB CONC 31.8 g/dL (31.0-37.0); MEAN CORPUSCULAR VOLUME 93.5 fL (80.0-94.0); MEAN PLATELET VOLUME 10.4 fl (7.4-10.4); PLATELET 172 x1000/uL (130-400); RED CELL DISTRIBUTION WIDTH 22.4 % (11.6-14.6); WHITE BLOOD COUNT 19.4 x1000/uL (4.5-11.0)
[2024-06-01 05:31] LABS: CHLORIDE 117 mEq/L (98-107); POTASSIUM 4.4 mEq/L (3.5-5.1); SODIUM 147 mEq/L (136-145)
[2024-06-01 05:32] LABS: CARBON DIOXIDE 22 mEq/L (21-32)
[2024-06-01 05:37] LABS: CREATININE 1.2 mg/dL (0.6-1.3); GLUCOSE 141 mg/dL (70-105); TRIGLYCERIDE 100 mg/dL (0-150); UREA NITROGEN BLOOD 46 mg/dL (9-23)
[2024-06-01 05:38] LABS: AMMONIA 18 uMol/L (<32)
[2024-06-01 05:39] LABS: ALANINE AMINOTRANSFERASE 25 IU/L (10-49); ALBUMIN 2.4 g/dL (3.2-4.8); ASPARTATE AMINOTRANSFERASE 24 IU/L (<34); BILIRUBIN DIRECT 0.4 mg/dL (<=3.0); BILIRUBIN TOTAL 0.7 mg/dL (0.1-1.0); PHOSPHORUS 4.6 mg/dL (2.5-4.9)
[2024-06-01 05:40] LABS: PROTEIN TOTAL 6.3 g/dL (6.0-8.3)
[2024-06-01 06:31] LABS: DIFFERENTIAL COMMENT 1
[2024-06-01 10:28] LABS: PHOSPHORUS 4.1 mg/dL (2.5-4.9)
[2024-06-01 10:54] LABS: BG BASE EXCESS -2.8 mmol/L (-2.0-3.0); BG CARBOXYHEMOGLOBIN 0.2 % (0.5-1.5); BG DEOXYHEMOGLOBIN 4.2 % (0.0-5.0); BG FRACTION INSPIRED OXYGEN 40; BG HCO3 ACT 21.2 mmol/L (21.0-28.0); BG METHEMOGLOBIN 0.3 % (0.5-1.5); BG OXYGEN SATURATION 95.8 % (94.0-98.0); BG OXYHEMOGLOBIN 95.3 % (94.0-98.0); BG PCO2 33.4 mmHg (35.0-48.0); BG PO2 77.5 mmHg (83.0-108.0); BG SAMPLE SITE RIGHT RADIAL; BG TOTAL HEMOGLOBIN 8.6 g/dL (13.5-17.5); BG TOTAL RESPIRATORY RATE 27 b/min; BG VENT MODE VENT - P/C
[2024-06-01] MEDS: MAGNESIUM 2 G PREMIX 50 ML IV NR (10:59)
[2024-06-01 13:08] LABS: ANISOCYTOSIS 2+; PLATELET ESTIMATE NORMAL
[2024-06-01] MEDS: THIAMINE HCL 100MG TABLET PO NR (14:48)
[2024-06-01] MEDS: DIATR MEGLU/DIATRIZOATE SOLN 30ML PO NR (16:30)
[2024-06-02] VITALS (97 sets, daily range): BP systolic 92–135; BP diastolic 54–80; PULSE 89–113; RESP 8–32; TEMP 36.22512–37.39188; O2SAT 97–100
[2024-06-02 06:55] LABS: AMMONIA 58 uMol/L (<32)
[2024-06-02 07:35] LABS: BASOPHILS % 0.1 % (0.0-2.0); EOSINOPHILS % 0.3 % (0.0-5.0); HEMATOCRIT. 26.1 % (42.0-52.0); HEMOGLOBIN. 8.3 g/dL (14.0-18.0); LYMPHOCYTES % 8.2 % (20.0-50.0); MEAN CORPUSCULAR HEMOGLOBIN 29.6 pg (28.0-32.0); MEAN CORPUSCULAR HGB CONC 31.7 g/dL (31.0-37.0); MEAN CORPUSCULAR VOLUME 93.2 fL (80.0-94.0); MEAN PLATELET VOLUME 10.2 fl (7.4-10.4); NEUTROPHILS % 87.4 % (40.0-76.0); PLATELET 181 x1000/uL (130-400); RED CELL DISTRIBUTION WIDTH 21.8 % (11.6-14.6); WHITE BLOOD COUNT 18.6 x1000/uL (4.5-11.0)
[2024-06-02 07:53] LABS: CHLORIDE 117 mEq/L (98-107); POTASSIUM 3.7 mEq/L (3.5-5.1); SODIUM 150 mEq/L (136-145)
[2024-06-02 07:56] LABS: CARBON DIOXIDE 22 mEq/L (21-32)
[2024-06-02 08:01] LABS: GLUCOSE 67 mg/dL (70-105); UREA NITROGEN BLOOD 40 mg/dL (9-23)
[2024-06-02 08:02] LABS: ALANINE AMINOTRANSFERASE 17 IU/L (10-49)
[2024-06-02 08:03] LABS: ALBUMIN 2.4 g/dL (3.2-4.8); ASPARTATE AMINOTRANSFERASE 24 IU/L (<34); BILIRUBIN DIRECT 0.4 mg/dL (<=3.0); BILIRUBIN TOTAL 0.8 mg/dL (0.1-1.0); PROTEIN TOTAL 5.9 g/dL (6.0-8.3)
[2024-06-02] MEDS: DEXTROSE 5% WATER 1,000 ML IV SCH (08:15)
[2024-06-02] MEDS: MIDODRINE HCL 5MG TABLET PO SCH (09:37)
[2024-06-02 09:42] LABS: BG FRACTION INSPIRED OXYGEN 40; BG METHEMOGLOBIN 0.3 % (0.5-1.5); BG OXYHEMOGLOBIN 95.7 % (94.0-98.0); BG PCO2 34.2 mmHg (35.0-48.0); BG PH 7.426 (7.350-7.450); BG PO2 103.5 mmHg (83.0-108.0); BG SAMPLE SITE RIGHT RADIAL; BG TOTAL HEMOGLOBIN 8.4 g/dL (13.5-17.5); BG VENT MODE VENT - P/C
[2024-06-03] VITALS (91 sets, daily range): BP systolic 91–121; BP diastolic 54–82; PULSE 72–109; RESP 16–27; TEMP 36.05844–37.7808; O2SAT 96–100
[2024-06-03] MEDS: MEROPENEM 500MG/50ML IV SCH ×2 (05:29→06:25)
[2024-06-03 05:42] LABS: BASOPHILS % 0.2 % (0.0-2.0); EOSINOPHILS % 0.4 % (0.0-5.0); HEMATOCRIT. 22.9 % (42.0-52.0); HEMOGLOBIN. 7.5 g/dL (14.0-18.0); LYMPHOCYTES % 11.2 % (20.0-50.0); MEAN CORPUSCULAR HEMOGLOBIN 29.5 pg (28.0-32.0); MEAN CORPUSCULAR HGB CONC 32.6 g/dL (31.0-37.0); MEAN CORPUSCULAR VOLUME 90.5 fL (80.0-94.0); MEAN PLATELET VOLUME 9.7 fl (7.4-10.4); MONOCYTES % 5.1 % (2.0-8.0); NEUTROPHILS % 83.1 % (40.0-76.0); PLATELET 179 x1000/uL (130-400); RED BLOOD CELL COUNT 2.53 mill/uL (4.7-6.1); RED CELL DISTRIBUTION WIDTH 22.3 % (11.6-14.6); WHITE BLOOD COUNT 16.2 x1000/uL (4.5-11.0)
[2024-06-03 05:50] LABS: CHLORIDE 117 mEq/L (98-107); POTASSIUM 3.4 mEq/L (3.5-5.1); SODIUM 149 mEq/L (136-145)
[2024-06-03 05:53] LABS: CALCIUM 7.8 mg/dL (8.7-10.4); CARBON DIOXIDE 21 mEq/L (21-32)
[2024-06-03 05:57] LABS: AMMONIA 25 uMol/L (<32)
[2024-06-03 05:58] LABS: CREATININE 0.9 mg/dL (0.6-1.3); GLUCOSE 82 mg/dL (70-105); UREA NITROGEN BLOOD 31 mg/dL (9-23)
[2024-06-03 05:59] LABS: ALANINE AMINOTRANSFERASE 10 IU/L (10-49)
[2024-06-03 06:00] LABS: ALBUMIN 2.2 g/dL (3.2-4.8); ASPARTATE AMINOTRANSFERASE 14 IU/L (<34); BILIRUBIN DIRECT 0.5 mg/dL (<=3.0); BILIRUBIN TOTAL 0.9 mg/dL (0.1-1.0); PHOSPHORUS 2.7 mg/dL (2.5-4.9); PROTEIN TOTAL 5.9 g/dL (6.0-8.3)
[2024-06-03 06:35] LABS: DIFFERENTIAL COMMENT 1
[2024-06-03] MEDS: KCL 20MEQ/100ML PREMIX 100 ML IV SCH (07:45)
[2024-06-03] MEDS: MAGNESIUM 4 G PREMIX 100 ML IV NR (08:30)
[2024-06-03 09:18] LABS: BG BASE EXCESS -2.1 mmol/L (-2.0-3.0); BG CARBOXYHEMOGLOBIN 0.6 % (0.5-1.5); BG DEOXYHEMOGLOBIN 3.3 % (0.0-5.0); BG FRACTION INSPIRED OXYGEN 35; BG HCO3 ACT 21.5 mmol/L (21.0-28.0); BG METHEMOGLOBIN 0.3 % (0.5-1.5); BG OXYGEN SATURATION 96.7 % (94.0-98.0); BG OXYHEMOGLOBIN 95.8 % (94.0-98.0); BG PCO2 32.3 mmHg (35.0-48.0); BG PH 7.442 (7.350-7.450); BG PO2 86.6 mmHg (83.0-108.0); BG SAMPLE SITE RIGHT RADIAL; BG TOTAL HEMOGLOBIN 8.9 g/dL (13.5-17.5); BG VENT MODE VENT - P/C
[2024-06-03] MEDS ORDERED: NALOXONE HCL 0.4MG/ML VIAL IV PRN (18:45)
[2024-06-03] MEDS: WATER IV SCH (21:22)
[2024-06-03] MEDS: DEXT 5% IV SCH (21:22)
[2024-06-03] MEDS: MEROPENEM IV SCH (21:22)
[2024-06-04] VITALS (55 sets, daily range): BP systolic 82–110; BP diastolic 51–76; PULSE 72–93; RESP 15–26; TEMP 35.78064–36.83628; O2SAT 97–100
[2024-06-04 05:45] LABS: CARBON DIOXIDE 23 mEq/L (21-32); CHLORIDE 115 mEq/L (98-107); POTASSIUM 3.5 mEq/L (3.5-5.1); SODIUM 145 mEq/L (136-145)
[2024-06-04 05:46] LABS: CALCIUM 7.6 mg/dL (8.7-10.4)
[2024-06-04 05:51] LABS: CREATININE 0.8 mg/dL (0.6-1.3); GLUCOSE 86 mg/dL (70-105); UREA NITROGEN BLOOD 28 mg/dL (9-23)
[2024-06-04 06:10] LABS: BASOPHILS % 0.5 % (0.0-2.0); EOSINOPHILS % 0.5 % (0.0-5.0); HEMATOCRIT. 24.4 % (42.0-52.0); HEMOGLOBIN. 7.7 g/dL (14.0-18.0); LYMPHOCYTES % 13.6 % (20.0-50.0); MEAN CORPUSCULAR HEMOGLOBIN 29.6 pg (28.0-32.0); MEAN CORPUSCULAR HGB CONC 31.6 g/dL (31.0-37.0); MEAN CORPUSCULAR VOLUME 93.5 fL (80.0-94.0); MEAN PLATELET VOLUME 10.4 fl (7.4-10.4); MONOCYTES % 6.8 % (2.0-8.0); NEUTROPHILS % 78.6 % (40.0-76.0); PLATELET 162 x1000/uL (130-400); RED BLOOD CELL COUNT 2.61 mill/uL (4.7-6.1); RED CELL DISTRIBUTION WIDTH 21.1 % (11.6-14.6); WHITE BLOOD COUNT 12.4 x1000/uL (4.5-11.0)
[2024-06-04 10:46] LABS: BG BASE EXCESS -1.8 mmol/L (-2.0-3.0); BG CARBOXYHEMOGLOBIN 1.3 % (0.5-1.5); BG DEOXYHEMOGLOBIN 2.7 % (0.0-5.0); BG FRACTION INSPIRED OXYGEN 35; BG HCO3 ACT 22.7 mmol/L (21.0-28.0); BG METHEMOGLOBIN 0.3 % (0.5-1.5); BG OXYGEN SATURATION 97.3 % (94.0-98.0); BG OXYHEMOGLOBIN 95.7 % (94.0-98.0); BG PCO2 36.5 mmHg (35.0-48.0); BG PH 7.411 (7.350-7.450); BG SAMPLE SITE RIGHT RADIAL; BG TOTAL HEMOGLOBIN 6.9 g/dL (13.5-17.5); BG VENT MODE VENT - AC
[2024-06-04] MEDS: ACETAMINOPHEN 650MG/20.3ML UDC PO PRN (12:35)
[2024-06-04 13:13] LABS: BASOPHILS % 0.3 % (0.0-2.0); EOSINOPHILS % 0.8 % (0.0-5.0); HEMATOCRIT. 23.9 % (42.0-52.0); HEMOGLOBIN. 7.6 g/dL (14.0-18.0); LYMPHOCYTES % 11.2 % (20.0-50.0); MEAN CORPUSCULAR HEMOGLOBIN 29.1 pg (28.0-32.0); MEAN PLATELET VOLUME 9.8 fl (7.4-10.4); MONOCYTES % 7.1 % (2.0-8.0); NEUTROPHILS % 80.6 % (40.0-76.0); PLATELET 156 x1000/uL (130-400); RED BLOOD CELL COUNT 2.62 mill/uL (4.7-6.1); RED CELL DISTRIBUTION WIDTH 21.4 % (11.6-14.6); WHITE BLOOD COUNT 10.8 x1000/uL (4.5-11.0)
[2024-06-05] VITALS (62 sets, daily range): BP systolic 90–116; BP diastolic 52–69; PULSE 91–113; RESP 16–30; TEMP 36.61404–36.83628; O2SAT 96–100
[2024-06-05] MEDS: DEXTROSE 50% WATER 50ML SYRINGE IV PRN (05:36)
[2024-06-05 06:37] LABS: CALCIUM 7.7 mg/dL (8.7-10.4); CARBON DIOXIDE 21 mEq/L (21-32); CHLORIDE 116 mEq/L (98-107); POTASSIUM 3.8 mEq/L (3.5-5.1); SODIUM 145 mEq/L (136-145)
[2024-06-05 06:43] LABS: CREATININE 0.8 mg/dL (0.6-1.3); GLUCOSE 70 mg/dL (70-105); UREA NITROGEN BLOOD 27 mg/dL (9-23)
[2024-06-05 06:45] LABS: BASOPHILS % 0.5 % (0.0-2.0); DIFFERENTIAL COMMENT 0; EOSINOPHILS % 0.5 % (0.0-5.0); HEMATOCRIT. 25.9 % (42.0-52.0); HEMOGLOBIN. 8.3 g/dL (14.0-18.0); LYMPHOCYTES % 12.8 % (20.0-50.0); MEAN CORPUSCULAR HGB CONC 32.2 g/dL (31.0-37.0); MEAN CORPUSCULAR VOLUME 92.9 fL (80.0-94.0); MEAN PLATELET VOLUME 9.9 fl (7.4-10.4); MONOCYTES % 7.8 % (2.0-8.0); NEUTROPHILS % 78.4 % (40.0-76.0); PHOSPHORUS 2.8 mg/dL (2.5-4.9); PLATELET 155 x1000/uL (130-400); RED BLOOD CELL COUNT 2.78 mill/uL (4.7-6.1); RED CELL DISTRIBUTION WIDTH 21.5 % (11.6-14.6); WHITE BLOOD COUNT 9.1 x1000/uL (4.5-11.0)
[2024-06-05 09:55] LABS: BG BASE EXCESS -2.3 mmol/L (-2.0-3.0); BG CARBOXYHEMOGLOBIN 0.7 % (0.5-1.5); BG DEOXYHEMOGLOBIN 5.5 % (0.0-5.0); BG FRACTION INSPIRED OXYGEN 35; BG METHEMOGLOBIN 0.3 % (0.5-1.5); BG OXYGEN SATURATION 94.4 % (94.0-98.0); BG OXYHEMOGLOBIN 93.5 % (94.0-98.0); BG PCO2 30.6 mmHg (35.0-48.0); BG PH 7.455 (7.350-7.450); BG SAMPLE SITE LEFT RADIAL; BG TOTAL HEMOGLOBIN 8.7 g/dL (13.5-17.5); BG VENT MODE VENT - SIMV
[2024-06-05] MEDS: MAGNESIUM 2 G PREMIX 50 ML IV NR (10:09)
[2024-06-05] MEDS: MORPHINE SULFATE 2 MG/ML INJ (NOT FOR IM USE) IV NR (17:42)
[2024-06-06] VITALS (106 sets, daily range): BP systolic 78–133; BP diastolic 47–85; PULSE 99–127; RESP 13–40; TEMP 37.00296–37.66968; O2SAT 93–100
[2024-06-06] MEDS: MEROPENEM 1GM/50ML DUPLEX 50 ML IV SCH (05:44)
[2024-06-06] MEDS: SODIUM CHLORIDE 3% FOR INH 4ML NEB INH SCH (08:46)
[2024-06-06 09:38] LABS: BG BASE EXCESS -0.7 mmol/L (-2.0-3.0); BG CARBOXYHEMOGLOBIN 0.9 % (0.5-1.5); BG DEOXYHEMOGLOBIN 2.2 % (0.0-5.0); BG FRACTION INSPIRED OXYGEN 35; BG HCO3 ACT 23.1 mmol/L (21.0-28.0); BG METHEMOGLOBIN 0.3 % (0.5-1.5); BG OXYGEN SATURATION 97.8 % (94.0-98.0); BG OXYHEMOGLOBIN 96.6 % (94.0-98.0); BG PCO2 33.9 mmHg (35.0-48.0); BG PH 7.452 (7.350-7.450); BG PO2 99.5 mmHg (83.0-108.0); BG SAMPLE SITE RIGHT RADIAL; BG TOTAL HEMOGLOBIN 7.2 g/dL (13.5-17.5); BG VENT MODE VENT - SIMV
[2024-06-06] MEDS: FUROSEMIDE 40MG/4ML VIAL IVP NR (12:15)
[2024-06-06] MEDS: LIDOCAINE HCL 1% 10 MG/ML 10ML VIAL ONE (12:22)
[2024-06-06 12:41] LABS: HEMATOCRIT 24.6 % (42.0-52.0); HEMOGLOBIN 7.8 g/dL (14.0-18.0); MEAN CORPUSCULAR HEMOGLOBIN 28.8 pg (28.0-32.0); MEAN CORPUSCULAR HGB CONC 31.6 g/dL (31.0-37.0); MEAN CORPUSCULAR VOLUME 91.1 fL (80.0-94.0); PLATELET 160 x1000/uL (130-400); RED CELL DISTRIBUTION WIDTH 21.9 % (11.6-14.6); WHITE BLOOD COUNT 9.5 x1000/uL (4.5-11.0)
[2024-06-06 12:51] LABS: CHLORIDE 114 mEq/L (98-107); POTASSIUM 4.5 mEq/L (3.5-5.1); SODIUM 144 mEq/L (136-145)
[2024-06-06 12:52] LABS: CALCIUM 7.5 mg/dL (8.7-10.4); CARBON DIOXIDE 24 mEq/L (21-32)
[2024-06-06 12:57] LABS: CREATININE 0.9 mg/dL (0.6-1.3); GLUCOSE 159 mg/dL (70-105); UREA NITROGEN BLOOD 27 mg/dL (9-23)
[2024-06-06] MEDS: MORPHINE SULFATE 2 MG/ML INJ (NOT FOR IM USE) IV PRN (13:01)
[2024-06-06] MEDS: MORPHINE SULFATE 2 MG/ML INJ (NOT FOR IM USE) IV NR (13:30)
[2024-06-06] MEDS: MIDODRINE HCL 5MG TABLET PO SCH (15:53)
[2024-06-06] MEDS: IPRATROPIUM/ALBUTEROL 0.5-3(2.5)MG/3ML NEB HHN SCH (16:17)
[2024-06-07] VITALS (99 sets, daily range): BP systolic 82–123; BP diastolic 47–72; PULSE 70–110; RESP 0–35; TEMP 36.83628–37.61412; O2SAT 98–100
[2024-06-07 07:28] LABS: BASOPHILS % 0.8 % (0.0-2.0); EOSINOPHILS % 0.2 % (0.0-5.0); HEMATOCRIT. 23.7 % (42.0-52.0); HEMOGLOBIN. 7.6 g/dL (14.0-18.0); LYMPHOCYTES % 18.6 % (20.0-50.0); MEAN CORPUSCULAR HEMOGLOBIN 29.7 pg (28.0-32.0); MEAN CORPUSCULAR HGB CONC 32.2 g/dL (31.0-37.0); MEAN CORPUSCULAR VOLUME 92.5 fL (80.0-94.0); MEAN PLATELET VOLUME 9.8 fl (7.4-10.4); MONOCYTES % 10.7 % (2.0-8.0); NEUTROPHILS % 69.7 % (40.0-76.0); PLATELET 131 x1000/uL (130-400); RED BLOOD CELL COUNT 2.56 mill/uL (4.7-6.1); RED CELL DISTRIBUTION WIDTH 22.2 % (11.6-14.6)
[2024-06-07 07:34] LABS: CARBON DIOXIDE 23 mEq/L (21-32); CHLORIDE 113 mEq/L (98-107); POTASSIUM 4.8 mEq/L (3.5-5.1); SODIUM 143 mEq/L (136-145)
[2024-06-07 07:35] LABS: CALCIUM 7.5 mg/dL (8.7-10.4)
[2024-06-07 07:37] LABS: DIFFERENTIAL COMMENT 1
[2024-06-07 07:39] LABS: CREATININE 0.9 mg/dL (0.6-1.3); GLUCOSE 126 mg/dL (70-105)
[2024-06-07 07:40] LABS: UREA NITROGEN BLOOD 25 mg/dL (9-23)
[2024-06-07 09:02] LABS: BG BASE EXCESS 0.8 mmol/L (-2.0-3.0); BG CARBOXYHEMOGLOBIN 1.2 % (0.5-1.5); BG DEOXYHEMOGLOBIN 2.9 % (0.0-5.0); BG FRACTION INSPIRED OXYGEN 35; BG HCO3 ACT 25.5 mmol/L (21.0-28.0); BG METHEMOGLOBIN 0.1 % (0.5-1.5); BG OXYGEN SATURATION 97.1 % (94.0-98.0); BG OXYHEMOGLOBIN 95.8 % (94.0-98.0); BG PCO2 40.7 mmHg (35.0-48.0); BG PH 7.414 (7.350-7.450); BG PO2 92.1 mmHg (83.0-108.0); BG SAMPLE SITE LEFT RADIAL; BG TOTAL HEMOGLOBIN 7.4 g/dL (13.5-17.5); BG VENT MODE VENT - SIMV
[2024-06-07] MEDS: MAGNESIUM 4 G PREMIX 100 ML IV SCH (09:54)
[2024-06-07 12:44] LABS: BG BASE EXCESS 2.1 mmol/L (-2.0-3.0); BG CARBOXYHEMOGLOBIN 1.4 % (0.5-1.5); BG DEOXYHEMOGLOBIN 2.1 % (0.0-5.0); BG FRACTION INSPIRED OXYGEN 35; BG HCO3 ACT 27.3 mmol/L (21.0-28.0); BG METHEMOGLOBIN 0.2 % (0.5-1.5); BG OXYGEN SATURATION 97.9 % (94.0-98.0); BG OXYHEMOGLOBIN 96.3 % (94.0-98.0); BG PCO2 46.1 mmHg (35.0-48.0); BG PO2 103.5 mmHg (83.0-108.0); BG SAMPLE SITE RIGHT RADIAL; BG TOTAL HEMOGLOBIN 7.2 g/dL (13.5-17.5); BG VENT MODE VENT - CPAP
[2024-06-07] MEDS: FUROSEMIDE 40MG/4ML VIAL IVP NR (13:06)
[2024-06-07] MEDS ORDERED: SODIUM CHLORIDE 3% FOR INH 15ML NEB INH NR (14:00)
[2024-06-07 14:34] LABS: PHOSPHORUS 3.4 mg/dL (2.5-4.9)
[2024-06-07] MEDS: IPRATROPIUM/ALBUTEROL 0.5-3(2.5)MG/3ML NEB HHN SCH (20:37)
[2024-06-07 21:48] LABS: BG BASE EXCESS -0.5 mmol/L (-2.0-3.0); BG CARBOXYHEMOGLOBIN 0.8 % (0.5-1.5); BG DEOXYHEMOGLOBIN 3.1 % (0.0-5.0); BG FRACTION INSPIRED OXYGEN 35; BG HCO3 ACT 24.8 mmol/L (21.0-28.0); BG METHEMOGLOBIN 0.2 % (0.5-1.5); BG OXYGEN SATURATION 96.9 % (94.0-98.0); BG OXYHEMOGLOBIN 95.9 % (94.0-98.0); BG PCO2 43.2 mmHg (35.0-48.0); BG PH 7.376 (7.350-7.450); BG PO2 94.1 mmHg (83.0-108.0); BG SAMPLE SITE RIGHT RADIAL; BG TOTAL HEMOGLOBIN 8.2 g/dL (13.5-17.5); BG VENT MODE VENT - SIMV
[2024-06-08] VITALS (95 sets, daily range): BP systolic 88–120; BP diastolic 51–76; PULSE 79–100; RESP 13–30; TEMP 36.6696–37.00296; O2SAT 0–100
[2024-06-08] MEDS: SODIUM CHLORIDE 3% FOR INH 4ML NEB INH SCH (05:11)
[2024-06-08 05:52] LABS: EOSINOPHILS % 0.6 % (0.0-5.0); HEMATOCRIT. 22.3 % (42.0-52.0); HEMOGLOBIN. 7.3 g/dL (14.0-18.0); LYMPHOCYTES % 20.8 % (20.0-50.0); MEAN CORPUSCULAR HEMOGLOBIN 30.3 pg (28.0-32.0); MEAN CORPUSCULAR HGB CONC 32.8 g/dL (31.0-37.0); MEAN CORPUSCULAR VOLUME 92.3 fL (80.0-94.0); MEAN PLATELET VOLUME 9.3 fl (7.4-10.4); MONOCYTES % 11.6 % (2.0-8.0); PLATELET 126 x1000/uL (130-400); RED BLOOD CELL COUNT 2.42 mill/uL (4.7-6.1); RED CELL DISTRIBUTION WIDTH 21.6 % (11.6-14.6); WHITE BLOOD COUNT 8.9 x1000/uL (4.5-11.0)
[2024-06-08 06:12] LABS: CHLORIDE 108 mEq/L (98-107); POTASSIUM 4.9 mEq/L (3.5-5.1); SODIUM 142 mEq/L (136-145)
[2024-06-08 06:13] LABS: CALCIUM 7.7 mg/dL (8.7-10.4); CARBON DIOXIDE 30 mEq/L (21-32)
[2024-06-08 06:18] LABS: CREATININE 0.9 mg/dL (0.6-1.3); GLUCOSE 92 mg/dL (70-105); UREA NITROGEN BLOOD 29 mg/dL (9-23)
[2024-06-08] MEDS: GADOTERATE MEGLUMINE 5 MMOL/10 ML VIAL IV ONE (12:59)
[2024-06-08] MEDS ORDERED: MIDODRINE HCL 5MG TABLET PO SCH (13:00)
[2024-06-08] MEDS: FUROSEMIDE 40MG/4ML VIAL IVP NR (14:05)
[2024-06-08] MEDS: MIDODRINE HCL 5MG TABLET PO SCH (14:06)
[2024-06-09] VITALS (67 sets, daily range): BP systolic 96–128; BP diastolic 54–73; PULSE 84–124; RESP 18–32; TEMP 36.55848–37.2252; O2SAT 89–100
[2024-06-09 06:19] LABS: BASOPHILS % 0.6 % (0.0-2.0); DIFFERENTIAL COMMENT 0; EOSINOPHILS % 0.3 % (0.0-5.0); HEMATOCRIT. 22.7 % (42.0-52.0); HEMOGLOBIN. 7.5 g/dL (14.0-18.0); LYMPHOCYTES % 18.3 % (20.0-50.0); MEAN CORPUSCULAR HEMOGLOBIN 30.1 pg (28.0-32.0); MEAN CORPUSCULAR HGB CONC 32.9 g/dL (31.0-37.0); MEAN CORPUSCULAR VOLUME 91.4 fL (80.0-94.0); MEAN PLATELET VOLUME 9.4 fl (7.4-10.4); MONOCYTES % 9.6 % (2.0-8.0); NEUTROPHILS % 71.2 % (40.0-76.0); PLATELET 120 x1000/uL (130-400); RED BLOOD CELL COUNT 2.49 mill/uL (4.7-6.1); RED CELL DISTRIBUTION WIDTH 21.3 % (11.6-14.6); WHITE BLOOD COUNT 9.7 x1000/uL (4.5-11.0)
[2024-06-09 06:35] LABS: CARBON DIOXIDE 31 mEq/L (21-32); CHLORIDE 109 mEq/L (98-107); POTASSIUM 5.1 mEq/L (3.5-5.1); SODIUM 143 mEq/L (136-145)
[2024-06-09 06:41] LABS: CREATININE 0.9 mg/dL (0.6-1.3); GLUCOSE 89 mg/dL (70-105); UREA NITROGEN BLOOD 30 mg/dL (9-23)
[2024-06-09 06:43] LABS: PHOSPHORUS 3.4 mg/dL (2.5-4.9)
[2024-06-09] MEDS: FUROSEMIDE 40MG/4ML VIAL IVP NR (08:51)
[2024-06-09] MEDS: MAGNESIUM 2 G PREMIX 50 ML IV NR (08:52)
[2024-06-09 13:49] LABS: BG BASE EXCESS 5.5 mmol/L (-2.0-3.0); BG CARBOXYHEMOGLOBIN 0.9 % (0.5-1.5); BG DEOXYHEMOGLOBIN 2.9 % (0.0-5.0); BG FRACTION INSPIRED OXYGEN 35; BG HCO3 ACT 31.1 mmol/L (21.0-28.0); BG OXYGEN SATURATION 97.1 % (94.0-98.0); BG OXYHEMOGLOBIN 96.2 % (94.0-98.0); BG PCO2 51.9 mmHg (35.0-48.0); BG PH 7.396 (7.350-7.450); BG PO2 90.6 mmHg (83.0-108.0); BG SAMPLE SITE RIGHT RADIAL; BG TOTAL HEMOGLOBIN 8.3 g/dL (13.5-17.5); BG VENT MODE VENT - CPAP
[2024-06-10] VITALS (103 sets, daily range): BP systolic 59–151; BP diastolic 42–103; PULSE 63–133; RESP 5–35; TEMP 35.94732–36.22512; O2SAT 94–100
[2024-06-10] MEDS ORDERED: MAGNESIUM 4 G PREMIX 100 ML IV NR (00:15)
[2024-06-10] MEDS ORDERED: PHENYLEPHRINE 50MG/250ML PMX 250 ML IV PRN (00:45)
[2024-06-10] MEDS: SODIUM CHLORIDE 0.9% 1,000 ML IV NR (01:07)
[2024-06-10] MEDS: PHENYLEPHRINE 50 MG in SODIUM CHLORIDE 0.9% 245 ML IV PRN (01:08)
[2024-06-10] MEDS: NOREPINEPHRINE 8MG/250ML PMX 250 ML IV PRN (01:09)
[2024-06-10 01:19] LABS: BASOPHILS % 0.5 % (0.0-2.0); EOSINOPHILS % 0.3 % (0.0-5.0); HEMATOCRIT. 24.6 % (42.0-52.0); HEMOGLOBIN. 7.7 g/dL (14.0-18.0); LYMPHOCYTES % 29.3 % (20.0-50.0); MEAN CORPUSCULAR HEMOGLOBIN 29.5 pg (28.0-32.0); MEAN CORPUSCULAR HGB CONC 31.4 g/dL (31.0-37.0); MEAN CORPUSCULAR VOLUME 94.2 fL (80.0-94.0); MEAN PLATELET VOLUME 9.6 fl (7.4-10.4); MONOCYTES % 4.2 % (2.0-8.0); NEUTROPHILS % 65.7 % (40.0-76.0); PLATELET 131 x1000/uL (130-400); RED BLOOD CELL COUNT 2.61 mill/uL (4.7-6.1); RED CELL DISTRIBUTION WIDTH 21.2 % (11.6-14.6); WHITE BLOOD COUNT 15.9 x1000/uL (4.5-11.0)
[2024-06-10 01:34] LABS: CARBON DIOXIDE 27 mEq/L (21-32); CHLORIDE 105 mEq/L (98-107); POTASSIUM 5.4 mEq/L (3.5-5.1); SODIUM 142 mEq/L (136-145)
[2024-06-10 01:35] LABS: CALCIUM 7.8 mg/dL (8.7-10.4)
[2024-06-10 01:39] LABS: CREATININE 1.1 mg/dL (0.6-1.3); GLUCOSE 182 mg/dL (70-105)
[2024-06-10 01:40] LABS: UREA NITROGEN BLOOD 31 mg/dL (9-23)
[2024-06-10 01:41] LABS: ALANINE AMINOTRANSFERASE 15 IU/L (10-49)
[2024-06-10 01:42] LABS: ALBUMIN 2.2 g/dL (3.2-4.8); ASPARTATE AMINOTRANSFERASE 58 IU/L (<34); BILIRUBIN TOTAL 0.5 mg/dL (0.1-1.0); PROTEIN TOTAL 6.3 g/dL (6.0-8.3)
[2024-06-10] MEDS ORDERED: FENTANYL 2500MCG/250ML PMX 250 ML IV PRN (01:45)
[2024-06-10] MEDS ORDERED: PROPOFOL 10MG/ML 100ML 100 ML IV PRN (01:45)
[2024-06-10] MEDS ORDERED: FENTANYL CITRATE 1,000 MCG in SODIUM CHLORIDE 0.9% 80 ML IV PRN (02:00)
[2024-06-10 03:42] LABS: BG FRACTION INSPIRED OXYGEN 100
[2024-06-10] MEDS: DEXTROSE 50% WATER 50ML SYRINGE IV NR ×2 (06:15→08:58)
[2024-06-10] MEDS: SODIUM CHLORIDE 0.9% 1,000 ML IV SCH (06:15)
[2024-06-10] MEDS: INSULIN REGULAR (HUMULIN R) 1000UNITS/10ML VIAL IV NR ×2 (06:16→10:17)
[2024-06-10 06:18] LABS: MEAN CORPUSCULAR HEMOGLOBIN 28.9 pg (28.0-32.0); MEAN CORPUSCULAR HGB CONC 30.7 g/dL (31.0-37.0); MEAN CORPUSCULAR VOLUME 94.1 fL (80.0-94.0); MEAN PLATELET VOLUME 9.1 fl (7.4-10.4); PLATELET 118 x1000/uL (130-400); RED BLOOD CELL COUNT 2.76 mill/uL (4.7-6.1); RED CELL DISTRIBUTION WIDTH 21.3 % (11.6-14.6); WHITE BLOOD COUNT 25.7 x1000/uL (4.5-11.0)
[2024-06-10 06:20] LABS: DIFFERENTIAL COMMENT 1
[2024-06-10 06:25] LABS: CARBON DIOXIDE 28 mEq/L (21-32); CHLORIDE 108 mEq/L (98-107); POTASSIUM 5.3 mEq/L (3.5-5.1); SODIUM 143 mEq/L (136-145)
[2024-06-10 06:26] LABS: CALCIUM 7.8 mg/dL (8.7-10.4)
[2024-06-10 06:30] LABS: GLUCOSE 82 mg/dL (70-105)
[2024-06-10 06:31] LABS: UREA NITROGEN BLOOD 30 mg/dL (9-23)
[2024-06-10 06:33] LABS: PHOSPHORUS 3.8 mg/dL (2.5-4.9)
[2024-06-10] MEDS: DEXT 5%/0.9% NACL 1,000 ML IV SCH (10:16)
[2024-06-10] MEDS: SODIUM BICARBONATE 8.4% 50MEQ/50ML SYR IV NR (10:16)
[2024-06-10] MEDS: FUROSEMIDE 40MG/4ML VIAL IVP NR (10:17)
[2024-06-10] MEDS: DEXT 10% WATER 1,000 ML IV SCH (12:30)
[2024-06-10] MEDS ORDERED: LEVETIRACETAM 1000MG PREMIX 100 ML IV SCH (13:30)
[2024-06-10 13:38] LABS: ANISOCYTOSIS 2+; PLATELET ESTIMATE SLIGHTLY DECREASED
[2024-06-10 13:45] LABS: BG BASE EXCESS 10.1 mmol/L (-2.0-3.0); BG CARBOXYHEMOGLOBIN 0.3 % (0.5-1.5); BG DEOXYHEMOGLOBIN 1.9 % (0.0-5.0); BG FRACTION INSPIRED OXYGEN 40; BG HCO3 ACT 34.3 mmol/L (21.0-28.0); BG METHEMOGLOBIN 0.3 % (0.5-1.5); BG OXYGEN SATURATION 98.1 % (94.0-98.0); BG OXYHEMOGLOBIN 97.5 % (94.0-98.0); BG PCO2 44.9 mmHg (35.0-48.0); BG PH 7.501 (7.350-7.450); BG PO2 102.1 mmHg (83.0-108.0); BG SAMPLE SITE RIGHT RADIAL; BG TOTAL HEMOGLOBIN 9.2 g/dL (13.5-17.5); BG VENT MODE VENT - AC
[2024-06-10] MEDS: METOCLOPRAMIDE HCL 10MG/2ML VIAL IV SCH (14:28)
[2024-06-10] MEDS: LEVETIRACETAM 1000MG PREMIX 100 ML IV SCH (20:18)
[2024-06-11] VITALS (102 sets, daily range): BP systolic 81–199; BP diastolic 61–178; PULSE 59–110; RESP 8–38; TEMP 35.66952–36.7; O2SAT 96–100
[2024-06-11 06:14] LABS: CHLORIDE 109 mEq/L (98-107); POTASSIUM 4.2 mEq/L (3.5-5.1); SODIUM 146 mEq/L (136-145)
[2024-06-11 06:15] LABS: CALCIUM 8.1 mg/dL (8.7-10.4); CARBON DIOXIDE 30 mEq/L (21-32)
[2024-06-11 06:20] LABS: CREATININE 0.9 mg/dL (0.6-1.3); GLUCOSE 89 mg/dL (70-105); TRIGLYCERIDE 83 mg/dL (0-150); UREA NITROGEN BLOOD 31 mg/dL (9-23)
[2024-06-11 06:22] LABS: PHOSPHORUS 3.3 mg/dL (2.5-4.9)
[2024-06-11 07:46] LABS: BASOPHILS % 0.3 % (0.0-2.0); EOSINOPHILS % 0.3 % (0.0-5.0); HEMATOCRIT. 22.4 % (42.0-52.0); HEMOGLOBIN. 7.1 g/dL (14.0-18.0); LYMPHOCYTES % 17.1 % (20.0-50.0); MEAN CORPUSCULAR HGB CONC 31.7 g/dL (31.0-37.0); MEAN CORPUSCULAR VOLUME 91.5 fL (80.0-94.0); MEAN PLATELET VOLUME 9.5 fl (7.4-10.4); MONOCYTES % 5.2 % (2.0-8.0); NEUTROPHILS % 77.1 % (40.0-76.0); PLATELET 112 x1000/uL (130-400); RED BLOOD CELL COUNT 2.45 mill/uL (4.7-6.1); WHITE BLOOD COUNT 13.6 x1000/uL (4.5-11.0)
[2024-06-11] MEDS: DEXT 5%/0.9% NACL 1,000 ML IV SCH (07:48)
[2024-06-11] MEDS: MIDAZOLAM 100MG/100ML PMX 100 ML IV PRN (08:32)
[2024-06-11 08:55] LABS: BG BASE EXCESS 8.2 mmol/L (-2.0-3.0); BG CARBOXYHEMOGLOBIN 1.2 % (0.5-1.5); BG DEOXYHEMOGLOBIN 1.5 % (0.0-5.0); BG FRACTION INSPIRED OXYGEN 40; BG HCO3 ACT 31.4 mmol/L (21.0-28.0); BG OXYGEN SATURATION 98.5 % (94.0-98.0); BG OXYHEMOGLOBIN 97.3 % (94.0-98.0); BG PCO2 37.4 mmHg (35.0-48.0); BG PH 7.542 (7.350-7.450); BG PO2 104.4 mmHg (83.0-108.0); BG SAMPLE SITE RIGHT RADIAL; BG TOTAL HEMOGLOBIN 7.1 g/dL (13.5-17.5); BG VENT MODE VENT - AC
[2024-06-11] MEDS: DEXT 5%/0.45% NACL 1000ML 1,000 ML IV SCH (09:46)
[2024-06-11 19:26] LABS: HEMATOCRIT 21.7 % (42.0-52.0)
[2024-06-11 19:31] LABS: HEMOGLOBIN 6.8 g/dL (14.0-18.0)
[2024-06-12] VITALS (101 sets, daily range): BP systolic 89–123; BP diastolic 51–92; PULSE 58–93; RESP 0–27; TEMP 35.4–36.6; O2SAT 98–100
[2024-06-12 00:41] LABS: HEMATOCRIT 25.4 % (42.0-52.0); HEMOGLOBIN 8.3 g/dL (14.0-18.0)
[2024-06-12 06:55] LABS: CALCIUM 7.9 mg/dL (8.7-10.4); CARBON DIOXIDE 26 mEq/L (21-32); CHLORIDE 111 mEq/L (98-107); POTASSIUM 4.3 mEq/L (3.5-5.1); SODIUM 145 mEq/L (136-145)
[2024-06-12 06:59] LABS: CREATININE 0.9 mg/dL (0.6-1.3)
[2024-06-12 07:00] LABS: GLUCOSE 80 mg/dL (70-105)
[2024-06-12 07:01] LABS: UREA NITROGEN BLOOD 25 mg/dL (9-23)
[2024-06-12 07:02] LABS: PHOSPHORUS 3.3 mg/dL (2.5-4.9)
[2024-06-12 08:22] LABS: BASOPHILS % 0.8 % (0.0-2.0); DIFFERENTIAL COMMENT 0; EOSINOPHILS % 0.9 % (0.0-5.0); HEMATOCRIT. 27.9 % (42.0-52.0); HEMOGLOBIN. 8.6 g/dL (14.0-18.0); LYMPHOCYTES % 23.3 % (20.0-50.0); MEAN CORPUSCULAR HEMOGLOBIN 29.3 pg (28.0-32.0); MEAN CORPUSCULAR VOLUME 94.4 fL (80.0-94.0); MEAN PLATELET VOLUME 9.8 fl (7.4-10.4); PLATELET 114 x1000/uL (130-400); RED BLOOD CELL COUNT 2.95 mill/uL (4.7-6.1); RED CELL DISTRIBUTION WIDTH 20.7 % (11.6-14.6)
[2024-06-12] MEDS: MAGNESIUM 2 G PREMIX 50 ML IV NR (08:23)
[2024-06-12 12:19] LABS: BG BASE EXCESS 5.4 mmol/L (-2.0-3.0); BG CARBOXYHEMOGLOBIN 0.2 % (0.5-1.5); BG DEOXYHEMOGLOBIN 1.4 % (0.0-5.0); BG FRACTION INSPIRED OXYGEN 40; BG HCO3 ACT 30.5 mmol/L (21.0-28.0); BG METHEMOGLOBIN 0.1 % (0.5-1.5); BG OXYGEN SATURATION 98.6 % (94.0-98.0); BG OXYHEMOGLOBIN 98.3 % (94.0-98.0); BG PCO2 47.5 mmHg (35.0-48.0); BG PH 7.425 (7.350-7.450); BG PO2 125.4 mmHg (83.0-108.0); BG SAMPLE SITE RIGHT RADIAL; BG TOTAL HEMOGLOBIN 8.5 g/dL (13.5-17.5); BG VENT MODE VENT - AC
[2024-06-13] VITALS (101 sets, daily range): BP systolic 80–122; BP diastolic 51–92; PULSE 78–120; RESP 0–33; TEMP 35.9–36.8; O2SAT 92–100
[2024-06-13 05:35] LABS: BASOPHILS % 1.2 % (0.0-2.0); DIFFERENTIAL COMMENT 0; HEMOGLOBIN. 7.3 g/dL (14.0-18.0); LYMPHOCYTES % 20.7 % (20.0-50.0); MEAN CORPUSCULAR HEMOGLOBIN 30.6 pg (28.0-32.0); MEAN CORPUSCULAR HGB CONC 31.8 g/dL (31.0-37.0); MEAN CORPUSCULAR VOLUME 96.1 fL (80.0-94.0); MEAN PLATELET VOLUME 9.8 fl (7.4-10.4); MONOCYTES % 5.9 % (2.0-8.0); NEUTROPHILS % 70.2 % (40.0-76.0); PLATELET 105 x1000/uL (130-400); RED BLOOD CELL COUNT 2.39 mill/uL (4.7-6.1); RED CELL DISTRIBUTION WIDTH 20.1 % (11.6-14.6); WHITE BLOOD COUNT 6.1 x1000/uL (4.5-11.0)
[2024-06-13 05:43] LABS: CHLORIDE 110 mEq/L (98-107); POTASSIUM 4.1 mEq/L (3.5-5.1); SODIUM 143 mEq/L (136-145)
[2024-06-13 05:44] LABS: CALCIUM 7.8 mg/dL (8.7-10.4); CARBON DIOXIDE 25 mEq/L (21-32)
[2024-06-13 05:49] LABS: CREATININE 0.8 mg/dL (0.6-1.3); GLUCOSE 86 mg/dL (70-105); UREA NITROGEN BLOOD 24 mg/dL (9-23)
[2024-06-13 05:51] LABS: PHOSPHORUS 3.4 mg/dL (2.5-4.9)
[2024-06-13 08:26] LABS: BG BASE EXCESS 4.4 mmol/L (-2.0-3.0); BG CARBOXYHEMOGLOBIN 1.3 % (0.5-1.5); BG DEOXYHEMOGLOBIN 0.9 % (0.0-5.0); BG FRACTION INSPIRED OXYGEN 40; BG HCO3 ACT 29.6 mmol/L (21.0-28.0); BG METHEMOGLOBIN 0.1 % (0.5-1.5); BG OXYGEN SATURATION 99.1 % (94.0-98.0); BG OXYHEMOGLOBIN 97.7 % (94.0-98.0); BG PCO2 48.1 mmHg (35.0-48.0); BG PH 7.407 (7.350-7.450); BG PO2 147.7 mmHg (83.0-108.0); BG SAMPLE SITE RIGHT RADIAL; BG TOTAL HEMOGLOBIN 7.1 g/dL (13.5-17.5); BG VENT MODE VENT - AC
[2024-06-14] VITALS (101 sets, daily range): BP systolic 89–136; BP diastolic 49–93; PULSE 53–109; RESP 0–25; TEMP 36.6–36.8; O2SAT 95–100
[2024-06-14 08:03] LABS: CHLORIDE 107 mEq/L (98-107); POTASSIUM 4.8 mEq/L (3.5-5.1); SODIUM 139 mEq/L (136-145)
[2024-06-14 08:04] LABS: CALCIUM 7.8 mg/dL (8.7-10.4); CARBON DIOXIDE 30 mEq/L (21-32)
[2024-06-14 08:09] LABS: CREATININE 0.8 mg/dL (0.6-1.3); GLUCOSE 71 mg/dL (70-105); UREA NITROGEN BLOOD 24 mg/dL (9-23)
[2024-06-14 08:11] LABS: PHOSPHORUS 3.2 mg/dL (2.5-4.9)
[2024-06-14 08:41] LABS: BASOPHILS % 0.7 % (0.0-2.0); DIFFERENTIAL COMMENT 0; EOSINOPHILS % 2.4 % (0.0-5.0); HEMATOCRIT. 24.7 % (42.0-52.0); LYMPHOCYTES % 22.6 % (20.0-50.0); MEAN CORPUSCULAR HEMOGLOBIN 29.9 pg (28.0-32.0); MEAN CORPUSCULAR HGB CONC 32.4 g/dL (31.0-37.0); MEAN CORPUSCULAR VOLUME 92.4 fL (80.0-94.0); MEAN PLATELET VOLUME 9.2 fl (7.4-10.4); MONOCYTES % 7.3 % (2.0-8.0); PLATELET 140 x1000/uL (130-400); RED BLOOD CELL COUNT 2.67 mill/uL (4.7-6.1); RED CELL DISTRIBUTION WIDTH 19.4 % (11.6-14.6); WHITE BLOOD COUNT 8.8 x1000/uL (4.5-11.0)
[2024-06-14] MEDS: MAGNESIUM 2 G PREMIX 50 ML IV SCH (10:46)
[2024-06-14 14:54] LABS: BG BASE EXCESS 3.3 mmol/L (-2.0-3.0); BG CARBOXYHEMOGLOBIN 0.7 % (0.5-1.5); BG DEOXYHEMOGLOBIN 1.3 % (0.0-5.0); BG FRACTION INSPIRED OXYGEN 40; BG HCO3 ACT 28.1 mmol/L (21.0-28.0); BG METHEMOGLOBIN 0.3 % (0.5-1.5); BG OXYGEN SATURATION 98.7 % (94.0-98.0); BG OXYHEMOGLOBIN 97.7 % (94.0-98.0); BG PCO2 43.8 mmHg (35.0-48.0); BG PH 7.425 (7.350-7.450); BG PO2 116.5 mmHg (83.0-108.0); BG SAMPLE SITE RIGHT RADIAL; BG TOTAL HEMOGLOBIN 8.7 g/dL (13.5-17.5); BG VENT MODE VENT - AC
[2024-06-15] VITALS (58 sets, daily range): BP systolic 91–141; BP diastolic 56–101; PULSE 46–99; RESP 11–27; TEMP 36.5–36.8; O2SAT 87–100
[2024-06-15 06:54] LABS: BASOPHILS % 0.8 % (0.0-2.0); EOSINOPHILS % 3.3 % (0.0-5.0); HEMATOCRIT. 24.4 % (42.0-52.0); LYMPHOCYTES % 20.6 % (20.0-50.0); MEAN CORPUSCULAR HEMOGLOBIN 30.2 pg (28.0-32.0); MEAN CORPUSCULAR HGB CONC 32.7 g/dL (31.0-37.0); MEAN CORPUSCULAR VOLUME 92.3 fL (80.0-94.0); MEAN PLATELET VOLUME 9.5 fl (7.4-10.4); MONOCYTES % 5.9 % (2.0-8.0); NEUTROPHILS % 69.4 % (40.0-76.0); PLATELET 189 x1000/uL (130-400); RED BLOOD CELL COUNT 2.64 mill/uL (4.7-6.1); RED CELL DISTRIBUTION WIDTH 20.3 % (11.6-14.6); WHITE BLOOD COUNT 10.9 x1000/uL (4.5-11.0)
[2024-06-15 07:01] LABS: CHLORIDE 106 mEq/L (98-107); POTASSIUM 5.6 mEq/L (3.5-5.1); SODIUM 137 mEq/L (136-145)
[2024-06-15 07:02] LABS: CALCIUM 7.6 mg/dL (8.7-10.4); CARBON DIOXIDE 28 mEq/L (21-32)
[2024-06-15 07:07] LABS: CREATININE 0.8 mg/dL (0.6-1.3); GLUCOSE 78 mg/dL (70-105); UREA NITROGEN BLOOD 25 mg/dL (9-23)
[2024-06-15 07:09] LABS: PHOSPHORUS 3.4 mg/dL (2.5-4.9)
[2024-06-15] MEDS: SODIUM ZIRCONIUM CYCLOSILICATE 10GM/PACKET PO ONE (08:52)
[2024-06-15] MEDS ORDERED: ENOXAPARIN 80MG/0.8ML SYR SUBCUT SCH (13:00)
[2024-06-15] MEDS ORDERED: ATROPINE SULFATE 1MG/ML VIAL IV PRN (13:45)
[2024-06-15 13:59] LABS: BG BASE EXCESS -0.8 mmol/L (-2.0-3.0); BG CARBOXYHEMOGLOBIN 0.3 % (0.5-1.5); BG DEOXYHEMOGLOBIN 1.5 % (0.0-5.0); BG FRACTION INSPIRED OXYGEN 40; BG HCO3 ACT 23.3 mmol/L (21.0-28.0); BG METHEMOGLOBIN 0.2 % (0.5-1.5); BG OXYGEN SATURATION 98.5 % (94.0-98.0); BG PCO2 36.2 mmHg (35.0-48.0); BG PH 7.426 (7.350-7.450); BG PO2 134.3 mmHg (83.0-108.0); BG SAMPLE SITE RIGHT RADIAL; BG TOTAL HEMOGLOBIN 10.1 g/dL (13.5-17.5); BG TOTAL RESPIRATORY RATE 20 b/min; BG VENT MODE VENT - AC
[2024-06-15] MEDS: INSULIN LISPRO 100 UNITS/ML SUBCUT SCH (23:06)
[2024-06-15] MEDS: BLOOD SUGAR DIAGNOSTIC STRIP TEST SCH (23:06)
[2024-06-16] VITALS (55 sets, daily range): BP systolic 94–127; BP diastolic 53–74; PULSE 88–123; RESP 11–30; TEMP 36.6–37.2; O2SAT 91–100
[2024-06-16 08:22] LABS: BASOPHILS % 0.3 % (0.0-2.0); DIFFERENTIAL COMMENT 0; EOSINOPHILS % 2.7 % (0.0-5.0); HEMATOCRIT. 24.1 % (42.0-52.0); HEMOGLOBIN. 7.8 g/dL (14.0-18.0); LYMPHOCYTES % 10.2 % (20.0-50.0); MEAN CORPUSCULAR HEMOGLOBIN 30.1 pg (28.0-32.0); MEAN CORPUSCULAR HGB CONC 32.4 g/dL (31.0-37.0); MEAN CORPUSCULAR VOLUME 92.6 fL (80.0-94.0); MEAN PLATELET VOLUME 8.8 fl (7.4-10.4); MONOCYTES % 4.4 % (2.0-8.0); NEUTROPHILS % 82.4 % (40.0-76.0); PLATELET 215 x1000/uL (130-400); RED CELL DISTRIBUTION WIDTH 19.8 % (11.6-14.6); WHITE BLOOD COUNT 21.6 x1000/uL (4.5-11.0)
[2024-06-16 08:47] LABS: CHLORIDE 106 mEq/L (98-107); POTASSIUM 5.4 mEq/L (3.5-5.1); SODIUM 136 mEq/L (136-145)
[2024-06-16 08:48] LABS: CALCIUM 8.2 mg/dL (8.7-10.4); CARBON DIOXIDE 25 mEq/L (21-32)
[2024-06-16 08:53] LABS: CREATININE 0.9 mg/dL (0.6-1.3); GLUCOSE 98 mg/dL (70-105); UREA NITROGEN BLOOD 27 mg/dL (9-23)
[2024-06-16 08:55] LABS: ALANINE AMINOTRANSFERASE 8 IU/L (10-49); ALBUMIN 2.1 g/dL (3.2-4.8); ASPARTATE AMINOTRANSFERASE 28 IU/L (<34); BILIRUBIN TOTAL 0.3 mg/dL (0.1-1.0); PHOSPHORUS 3.5 mg/dL (2.5-4.9); PROTEIN TOTAL 6.5 g/dL (6.0-8.3)
[2024-06-16 08:57] LABS: BG BASE EXCESS 4.2 mmol/L (-2.0-3.0); BG CARBOXYHEMOGLOBIN 0.1 % (0.5-1.5); BG DEOXYHEMOGLOBIN 4.9 % (0.0-5.0); BG FRACTION INSPIRED OXYGEN 65; BG HCO3 ACT 29.9 mmol/L (21.0-28.0); BG METHEMOGLOBIN 0.3 % (0.5-1.5); BG OXYGEN SATURATION 95.1 % (94.0-98.0); BG OXYHEMOGLOBIN 94.7 % (94.0-98.0); BG PCO2 52.5 mmHg (35.0-48.0); BG PH 7.374 (7.350-7.450); BG PO2 76.5 mmHg (83.0-108.0); BG SAMPLE SITE RIGHT RADIAL; BG TOTAL HEMOGLOBIN 7.3 g/dL (13.5-17.5); BG VENT MODE VENT - AC
[2024-06-16] MEDS: SODIUM ZIRCONIUM CYCLOSILICATE 10GM/PACKET PO NR (09:45)
[2024-06-16] MEDS: SODIUM BICARBONATE 8.4% 50MEQ/50ML SYR IV NR (10:37)
[2024-06-16] MEDS: CALCIUM CHLORIDE 1GM/10ML SYR IV NR (10:37)
[2024-06-16] MEDS: MAGNESIUM 2 G PREMIX 50 ML IV NR (10:37)
[2024-06-16] MEDS: ALBUTEROL (0.083%) 2.5MG/3ML NEB HHN NR (12:15)
[2024-06-16 16:55] LABS: CHLORIDE 105 mEq/L (98-107); SODIUM 137 mEq/L (136-145)
[2024-06-16 16:56] LABS: CALCIUM 8.4 mg/dL (8.7-10.4); CARBON DIOXIDE 24 mEq/L (21-32)
[2024-06-16 17:01] LABS: CREATININE 0.9 mg/dL (0.6-1.3); GLUCOSE 160 mg/dL (70-105); UREA NITROGEN BLOOD 27 mg/dL (9-23)
[2024-06-16 20:40] LABS: PHOSPHORUS 3.5 mg/dL (2.5-4.9)
[2024-06-16 21:09] LABS: BG BASE EXCESS 2.4 mmol/L (-2.0-3.0); BG CARBOXYHEMOGLOBIN 0.3 % (0.5-1.5); BG DEOXYHEMOGLOBIN 1.3 % (0.0-5.0); BG FRACTION INSPIRED OXYGEN 55; BG HCO3 ACT 29.8 mmol/L (21.0-28.0); BG METHEMOGLOBIN 0.3 % (0.5-1.5); BG OXYGEN SATURATION 98.7 % (94.0-98.0); BG OXYHEMOGLOBIN 98.1 % (94.0-98.0); BG PCO2 64.4 mmHg (35.0-48.0); BG PH 7.283 (7.350-7.450); BG PO2 126.5 mmHg (83.0-108.0); BG SAMPLE SITE LEFT RADIAL; BG TOTAL HEMOGLOBIN 8.4 g/dL (13.5-17.5); BG VENT MODE VENT - AC
[2024-06-17] VITALS (39 sets, daily range): BP systolic 60–116; BP diastolic 37–74; PULSE 89–112; RESP 0–32; TEMP 36.1–37.2; O2SAT 94–100
[2024-06-17 06:42] LABS: CHLORIDE 105 mEq/L (98-107); POTASSIUM 4.9 mEq/L (3.5-5.1); SODIUM 137 mEq/L (136-145)
[2024-06-17 06:43] LABS: CARBON DIOXIDE 25 mEq/L (21-32)
[2024-06-17 06:44] LABS: CALCIUM 8.4 mg/dL (8.7-10.4)
[2024-06-17 06:48] LABS: CREATININE 0.8 mg/dL (0.6-1.3); GLUCOSE 94 mg/dL (70-105); UREA NITROGEN BLOOD 29 mg/dL (9-23)
[2024-06-17 06:50] LABS: ALANINE AMINOTRANSFERASE 8 IU/L (10-49); ALBUMIN 2.1 g/dL (3.2-4.8); ASPARTATE AMINOTRANSFERASE 24 IU/L (<34)
[2024-06-17 06:51] LABS: BILIRUBIN DIRECT 0.2 mg/dL (<=3.0); BILIRUBIN TOTAL 0.3 mg/dL (0.1-1.0); PHOSPHORUS 3.5 mg/dL (2.5-4.9); PROTEIN TOTAL 6.4 g/dL (6.0-8.3)
[2024-06-17 07:22] LABS: BASOPHILS % 0.4 % (0.0-2.0); EOSINOPHILS % 1.2 % (0.0-5.0); HEMATOCRIT. 21.9 % (42.0-52.0); LYMPHOCYTES % 8.2 % (20.0-50.0); MEAN CORPUSCULAR HEMOGLOBIN 29.9 pg (28.0-32.0); MEAN CORPUSCULAR HGB CONC 31.8 g/dL (31.0-37.0); MEAN CORPUSCULAR VOLUME 94.1 fL (80.0-94.0); MEAN PLATELET VOLUME 9.4 fl (7.4-10.4); MONOCYTES % 5.3 % (2.0-8.0); NEUTROPHILS % 84.9 % (40.0-76.0); PLATELET 201 x1000/uL (130-400); RED BLOOD CELL COUNT 2.33 mill/uL (4.7-6.1); RED CELL DISTRIBUTION WIDTH 19.1 % (11.6-14.6); WHITE BLOOD COUNT 19.8 x1000/uL (4.5-11.0)
[2024-06-17 12:45] LABS: BG BASE EXCESS 3.7 mmol/L (-2.0-3.0); BG CARBOXYHEMOGLOBIN 0.3 % (0.5-1.5); BG DEOXYHEMOGLOBIN 18.5 % (0.0-5.0); BG FRACTION INSPIRED OXYGEN 40; BG HCO3 ACT 28.9 mmol/L (21.0-28.0); BG METHEMOGLOBIN 0.3 % (0.5-1.5); BG OXYGEN SATURATION 81.4 % (94.0-98.0); BG OXYHEMOGLOBIN 80.9 % (94.0-98.0); BG PCO2 46.9 mmHg (35.0-48.0); BG PH 7.407 (7.350-7.450); BG PO2 43.6 mmHg (83.0-108.0); BG SAMPLE SITE RIGHT RADIAL; BG TOTAL HEMOGLOBIN 7.9 g/dL (13.5-17.5); BG VENT MODE VENT - AC
[2024-06-17] MEDS: MORPHINE SULFATE 100 MG in DEXT 5% WATER 90 ML IV PRN ×2 (13:50→14:19)
[2024-06-17] MEDS: MORPHINE SULFATE 100 MG in SODIUM CHLORIDE 0.9% 90 ML IV PRN (18:10)
[2024-06-17] MEDS ORDERED: MORPHINE SULFATE 100 MG in DEXT 5% WATER 90 ML IV PRN (23:00)
[2024-06-18] VITALS: BP 59/28; PULSE 86; RESP 11; TEMP 36.4; O2SAT 97
[2024-06-18 04:00] VITALS: BP 62/36; PULSE 82; RESP 11; TEMP 36.1; O2SAT 98
[2024-06-18 08:00] VITALS: BP 51/25; PULSE 84; RESP 11; TEMP 36.1; O2SAT 97
[2024-06-18 12:00] VITALS: BP 54/27; PULSE 87; RESP 9; TEMP 36; O2SAT 94
[2024-06-18 16:00] VITALS: BP 63/32; PULSE 86; RESP 9; TEMP 36.1; O2SAT 90
[2024-06-18 20:00] VITALS: BP 75/35; PULSE 84; RESP 16; TEMP 35.4; O2SAT 85
== END 2024-06-18 22:20 | DRG 720 ==
LOC: ER 13:11 → EDBEDREQ 14:27 → MICUSO 17:05 → EDBEDREQ 17:29 → EDBEDREQTM 17:29 → MICUNO 05-23 16:48 → 7WST 06-09 23:37 → CVICU 06-10 01:03 → 6EST 06-17 23:08
PROVIDERS: ADMIT Internal Medicine; ATTEND Internal Medicine
PROC: 06HY33Z Insertion of Infusion Device into Lower Vein, Percutaneous Approach (ICD-10-PCS; 2024-05-22)
PROC: B54BZZA Ultrasonography of Right Lower Extremity Veins, Guidance (ICD-10-PCS; 2024-05-22)
PROC: 02HV33Z Insertion of Infusion Device into Superior Vena Cava, Percutaneous Approach (ICD-10-PCS; 2024-05-22)
PROC: B548ZZA Ultrasonography of Superior Vena Cava, Guidance (ICD-10-PCS; 2024-05-22)
PROC: 5A1955Z Respiratory Ventilation, Greater than 96 Consecutive Hours (ICD-10-PCS; principal; 2024-05-23)
PROC: 0BH17EZ Insertion of Endotracheal Airway into Trachea, Via Natural or Artificial Opening (ICD-10-PCS; 2024-05-23)
PROC: 5A12012 Performance of Cardiac Output, Single, Manual (ICD-10-PCS; 2024-05-23)
PROC: 02HV33Z Insertion of Infusion Device into Superior Vena Cava, Percutaneous Approach (ICD-10-PCS; 2024-05-25)
PROC: B548ZZA Ultrasonography of Superior Vena Cava, Guidance (ICD-10-PCS; 2024-05-25)
PROC: 30233N1 Transfusion of Nonautologous Red Blood Cells into Peripheral Vein, Percutaneous Approach (ICD-10-PCS; 2024-05-26)
PROC: 5A1955Z Respiratory Ventilation, Greater than 96 Consecutive Hours (ICD-10-PCS; 2024-05-31)
PROC: 0BH17EZ Insertion of Endotracheal Airway into Trachea, Via Natural or Artificial Opening (ICD-10-PCS; 2024-05-31)
PROC: 0W9F30Z Drainage of Abdominal Wall with Drainage Device, Percutaneous Approach (ICD-10-PCS; 2024-06-03)
PROC: 0BH17EZ Insertion of Endotracheal Airway into Trachea, Via Natural or Artificial Opening (ICD-10-PCS; 2024-06-08)
PROC: 5A1955Z Respiratory Ventilation, Greater than 96 Consecutive Hours (ICD-10-PCS; 2024-06-08)
PROC: 4A00X4Z Measurement of Central Nervous Electrical Activity, External Approach (ICD-10-PCS; 2024-06-11)
DX: A41.51 Sepsis due to Escherichia coli [E. coli] (principal); I46.9 Cardiac arrest, cause unspecified; D65 Disseminated intravascular coagulation [defibrination syndrome]; J96.01 Acute respiratory failure with hypoxia; J69.0 Pneumonitis due to inhalation of food and vomit; K65.0 Generalized (acute) peritonitis; G92.8 Other toxic encephalopathy; E72.20 Disorder of urea cycle metabolism, unspecified; K65.1 Peritoneal abscess; E43 Unspecified severe protein-calorie malnutrition; N17.0 Acute kidney failure with tubular necrosis; Z66 Do not resuscitate; R65.21 Severe sepsis with septic shock; L89.154 Pressure ulcer of sacral region, stage 4; B96.20 Unspecified Escherichia coli [E. coli] as the cause of diseases classified elsewhere; E11.22 Type 2 diabetes mellitus with diabetic chronic kidney disease; E87.20 Acidosis, unspecified; E78.5 Hyperlipidemia, unspecified; B95.62 Methicillin resistant Staphylococcus aureus infection as the cause of diseases classified elsewhere; D53.9 Nutritional anemia, unspecified; E83.42 Hypomagnesemia; E87.1 Hypo-osmolality and hyponatremia; E87.5 Hyperkalemia; G82.20 Paraplegia, unspecified; I13.0 Hypertensive heart and chronic kidney disease with heart failure and stage 1 through stage 4 chronic kidney disease, or unspecified chronic kidney disease; I42.0 Dilated cardiomyopathy; I50.43 Acute on chronic combined systolic (congestive) and diastolic (congestive) heart failure; I47.19 Other supraventricular tachycardia; I82.411 Acute embolism and thrombosis of right femoral vein; L98.492 Non-pressure chronic ulcer of skin of other sites with fat layer exposed; N31.9 Neuromuscular dysfunction of bladder, unspecified; Z86.14 Personal history of Methicillin resistant Staphylococcus aureus infection; Z16.12 Extended spectrum beta lactamase (ESBL) resistance; G93.1 Anoxic brain damage, not elsewhere classified; E83.51 Hypocalcemia; I21.A1 Myocardial infarction type 2; B96.1 Klebsiella pneumoniae [K. pneumoniae] as the cause of diseases classified elsewhere; B95.2 Enterococcus as the cause of diseases classified elsewhere; N13.6 Pyonephrosis; I08.1 Rheumatic disorders of both mitral and tricuspid valves; G35 Multiple sclerosis; I25.10 Atherosclerotic heart disease of native coronary artery without angina pectoris; N18.9 Chronic kidney disease, unspecified; Z51.5 Encounter for palliative care; R74.01 Elevation of levels of liver transaminase levels; R13.12 Dysphagia, oropharyngeal phase; E87.6 Hypokalemia; Z74.01 Bed confinement status; Z78.1 Physical restraint status; Z87.440 Personal history of urinary (tract) infections; Z82.49 Family history of ischemic heart disease and other diseases of the circulatory system; Z86.61 Personal history of infections of the central nervous system; Z86.718 Personal history of other venous thrombosis and embolism; Z95.828 Presence of other vascular implants and grafts; Z68.25 Body mass index [BMI] 25.0-25.9, adult
CPT/HCPCS: 31500; 36415; 36573; 36600; 71045; 73560; 73723; 74018; 74176; 74177; 76705; 76942; 80048; 80053; 80076; 80202; 81003; 82140; 82248; 82270; 82330; 82375; 82607; 82728; 82746; 82805; 82962; 83036; 83540; 83550; 83605; 83735; 83880; 84100; 84134; 84145; 84478; 84484; 85014; 85018; 85025; 85027; 85044; 86705; 86709; 86850; 86900; 86920; 87070; 87077; 87186; 87340; 87804; 92950; 93005; 93306; 93923; 93970; 94002; 94003; 94070; 94640; 94664; 95816; 98960; 99291; A4606; A4663; A9577; C1725; C1729; C1769; J0456; J1815; J1940; J1953; J2003; J2185; J2250; J2270; J2470; J2543; J2704; J2765; J3010; J3370; J3475; J3480; J3490; J7030; J7040; J7050; J7060; J7070; L8514; P9016; Q9963; A5200